=== PATIENT | male | born 1955 | race Caucasian/White ===

== ENCOUNTER 2018-05-18 07:09 | Day surgery (SDC) | payer MEDICARE, MEDICAID ==
[~2018-05-18] VITALS: Ht 185.4 cm; Wt 65.8 kg
[~2018-05-18 07:09] MED LIST: ATOR10TA52 PO; CARV12.544 PO; CLON0.1T PO; ENA10T PO; GABA100C PO; HYDR-531 PO; MELO1TAB73 PO; OME20T PO
[2018-05-18] MEDS ORDERED: LIDOCAINE 2%HCL (LOCAL ANESTH.) INJ 20ML MDV ONE (08:18)
[2018-05-18] MEDS ORDERED: IODIXANOL 320MG/ML 100ML BTL IV ONE ×2 (08:18→08:37)
[2018-05-18] MEDS ORDERED: VERAPAMIL 2.5MG/ML INJ 2ML VIAL IV ONE (08:28)
[2018-05-18] MEDS ORDERED: ANGIOMAX 250 MG VIAL IV ONE (08:28)
[2018-05-18] MEDS ORDERED: fentaNYL CITRATE 100 MCG/2 ML VL ONE (08:29)
[2018-05-18] MEDS ORDERED: ATROPINE SULFATE 1 MG/1 ML VIAL ONE (08:29)
[2018-05-18] MEDS ORDERED: SODIUM CHL 0.9% 0 ML ONE (08:29)
[2018-05-18] MEDS ORDERED: MIDAZOLAM HCL 1MG/1ML-2 ML VIAL ONE (08:29)
[2018-05-18] MEDS ORDERED: DOPamine 1600MCG/ML D5W 0 ML IV ONE (08:30)
[2018-05-18] MEDS ORDERED: EPINEPHrine HCL 1 MG/10 ML SYRG ONE (08:30)
[2018-05-18] MEDS ORDERED: HEPARIN SODIUM (PORCINE) 5000 UNITS/ML 1ML VIAL ONE (09:02)
[2018-05-18] MEDS ORDERED: diphenhdrAMINE HCL 50 MG/1 ML VL IV ONE ×2 (10:45→11:00)
== END 2018-05-18 11:51 | disposition home or self-care (01) ==
LOC: CATH 07:09
PROVIDERS: ATTEND Internal Medicine
DX: R94.39 Abnormal result of other cardiovascular function study (principal); I10 Essential (primary) hypertension; Z90.49 Acquired absence of other specified parts of digestive tract; Z79.899 Other long term (current) drug therapy; Z87.891 Personal history of nicotine dependence; Z96.643 Presence of artificial hip joint, bilateral; Z98.890 Other specified postprocedural states
CPT/HCPCS: 93458; A6257; C1769; C1894; J1200; J1644; J2250; J3010; J7030; Q9967; 99152; 99153; J0461

== ENCOUNTER 2018-12-12 12:56 | Inpatient (IN) | payer MEDICARE, OTHER ==
[~2018-12-12] VITALS: Ht 175.3 cm; Wt 66.9 kg
[~2018-12-12 12:56] MED LIST changes: -ENA10T PO; +ENAL10TA PO
[2018-12-12] MEDS ORDERED: SODIUM CHLORIDE 0.9% 500 ML IV ONE (13:03)
[2018-12-12] MEDS ORDERED: ETOMIDATE (2MG/ML) 20ML VIAL IV ONE (14:30)
[2018-12-12] MEDS ORDERED: ONDANSETRON HCL 4 MG/2 ML VIAL IV ONE (16:00)
[2018-12-12] MEDS ORDERED: MORPHINE SULFATE 4 MG/ML SYR/VIAL IV ONE (16:00)
[2018-12-12] MEDS ORDERED: ACETAMINOPHEN 325 MG TAB PO PRN (16:30)
[2018-12-12] MEDS ORDERED: NITROGLYCERIN 0.4 MG SL TAB SL PRN (16:30)
[2018-12-12 16:33] LABS: Basophils # (auto) 0 uL; Basophils % (auto) 0.4 % (0.0-2.0); Eosinophils # (auto) 0.3 uL; Eosinophils % (auto) 2.6 % (0.0-7.0); Hematocrit 42.2 % (41.0-53.0); Hemoglobin 14.1 g/dL (13.5-17.5); Lymphocytes # (auto) 1.2 uL; Lymphocytes % (auto) 11.4 % (10.0-50.0); Mean Corpuscular Hemoglobin 29.8 pg (28.0-32.0); Mean Corpuscular Hgb Conc. 33.4 g/dL (32.0-36.0); Mean Corpuscular Volume 89.4 fL (80.0-100.0); Monocytes # (auto) 0.5 uL; Monocytes % (auto) 5.1 % (0.0-12.0); Neutrophils # (auto) 8.5 uL; Neutrophils % (auto) 80.5 % (37.0-80.0); Platelet Count (auto) 192 10^3/uL (140-450); Red Blood Cells 4.72 10^6/uL (4.5-5.90); Red Cell Distribution Width 13.3 % (11.8-14.3); White Blood Cell 10.5 10^3/uL (4.4-10.8)
[2018-12-12 16:45] LABS: Albumin 3.7 g/dL (3.4-5.0); Calcium 8.3 mg/dL (8.5-10.1); Potassium 4.6 mmol/L (3.5-5.1)
[2018-12-12 16:49] LABS: BUN/Creatinine Ratio 23.1; Bilirubin, Total 0.7 mg/dL (0.2-1.0); Total Protein 7.3 g/dL (6.4-8.2)
[2018-12-12] MEDS: MELOXICAM 7.5MG PO SCH (17:00)
[2018-12-12] MEDS: MORPHINE SULFATE 4 MG/ML SYR/VIAL IV PRN ×2 (17:14→21:48)
[2018-12-12 17:26] LABS: INR 0.96 (0.9-1.15); Partial Thromboplastin Time 24.1 sec (23.64-32.05)
[2018-12-12] MEDS: HYDROcodone-ACET 5/325MG TAB PO PRN (18:24)
--- NOTE | 2018-12-12 18:47 | NUR ---
MS admit from ER: TABITHA EARLY admitted to tele/MS after SBAR received from SWAPNIL Dyer. Patient oriented to EULOGIO MITCHELL RN primary RN, unit, room, bed, and unit policies regarding patient care and visiting hours. Patient encouraged to call if they need something. All questions and concerns addressed, patient verbalized understanding.
--- NOTE | 2018-12-12 18:54 | NUR ---
Patient A&Ox4. Patient transferred to bed will little distress.
[2018-12-12 19:00] VITALS: BP 138/103
--- NOTE | 2018-12-12 19:10 | NUR ---
Closing shift notes: Care endorsed to NOC SWAPNIL Foster. Due patients arrival to the floor late, admission was not complete. NOC nurse aware.
--- NOTE | 2018-12-12 19:15 | NUR ---
Opening Shift Note Assumed care of patient, awake and alert. Family on bedside No S/S of distress/SOB or pain. Instructed on POC and to call for assist PRN, will continue to monitor for changes Q1hr and PRN.
[2018-12-12] MEDS ORDERED: META-116 PO (20:42)
[2018-12-12] MEDS ORDERED: OXYB5SYP4 PO (20:42)
[2018-12-12] MEDS ORDERED: CITA-73 PO (20:42)
[2018-12-12] MEDS ORDERED: FENT75DI2 TD (20:42)
[2018-12-12] MEDS: ONDANSETRON HCL 4 MG/2 ML VIAL IV PRN (21:28)
[2018-12-12] MEDS: GABAPENTIN 100 MG CAP PO SCH (21:48)
[2018-12-12] MEDS: ATORVASTATIN 20 MG TAB PO SCH (21:49)
[2018-12-12] MEDS: cloNIDine HCL 0.1 MG TAB PO SCH (21:49)
[2018-12-12] MEDS: CARVEDILOL 12.5 MG TAB PO SCH (21:49)
[2018-12-12] MEDS: ENALAPRIL MALEATE 10 MG TAB PO SCH (21:50)
[2018-12-12 22:00] VITALS: BP 147/98
[2018-12-13] MEDS: MORPHINE SULFATE 4 MG/ML SYR/VIAL IV PRN ×2 (02:21→06:07)
[2018-12-13] MEDS: ONDANSETRON HCL 4 MG/2 ML VIAL IV PRN ×2 (02:21→06:06)
[2018-12-13 04:40] LABS: Urine WBC None Seen /hpf (0 - 3)
[2018-12-13 04:46] LABS: Urine Bacteria NONE SEEN /hpf (None Seen); Urine Blood Negative /uL (Negative); Urine Hyaline Cast FEW /lpf (0 - 2); Urine Specific Gravity 1.015 (1.001-1.035)
[2018-12-13 05:00] VITALS: BP 145/102
[2018-12-13] MEDS: GABAPENTIN 100 MG CAP PO SCH ×3 (06:06→22:28)
[2018-12-13 08:00] VITALS: BP 147/102
[2018-12-13 08:29] VITALS: BP 147/102
[2018-12-13] MEDS: MELOXICAM 7.5MG PO SCH (08:30)
[2018-12-13] MEDS: CARVEDILOL 12.5 MG TAB PO SCH ×2 (08:30→22:00)
[2018-12-13] MEDS: OMEPRAZOLE 20MG/10ML ORAL SUSP PO SCH (08:30)
[2018-12-13] MEDS: HYDROcodone-ACET 5/325MG TAB PO PRN ×3 (08:36→18:52)
--- NOTE | 2018-12-13 08:45 | NUR ---
PT OFF UNIT TO OR FOR SX VIA BED. NO S/S OF ACUTE DISTRESS NOTED AT DEPARTURE. Signed: 12/13/18 at 1346 by Martin Napoles RN RN
[2018-12-13] MEDS ORDERED: ceFAZolin 1GM/50ML 50 ML IV ONE (08:56)
[2018-12-13] MEDS ORDERED: SUCCINYLCHOLINE CHLORIDE 20 MG/ML 10ML VIAL IV ONE (09:27)
[2018-12-13] MEDS ORDERED: LIDOCAINE 1% (LOCAL ANESTH.) PF 5ml SDV ONE (09:27)
[2018-12-13] MEDS ORDERED: MIDAZOLAM HCL 1MG/1ML-2 ML VIAL ONE (09:34)
[2018-12-13] MEDS ORDERED: ETOMIDATE (2MG/ML) 20ML VIAL IV ONE (09:37)
[2018-12-13] MEDS ORDERED: fentaNYL CITRATE 100 MCG/2 ML VL ONE (09:42)
[2018-12-13] MEDS ORDERED: SODIUM CHLORIDE LOCK 10 ML ONE (09:50)
[2018-12-13] MEDS ORDERED: ePHEDrine SULFATE 50 MG/ML AMP ONE (09:50)
[2018-12-13] MEDS ORDERED: NEOSTIGMINE 1 MG/ML INJ (10mg/10ML VIAL) ONE (09:52)
[2018-12-13] MEDS ORDERED: GLYCOPYRROLATE 0.2 MG/ML 1ML VIAL ONE (09:52)
[2018-12-13] MEDS ORDERED: ENOXAPARIN SOD 40 MG/0.4 ML SYRINGE SC SCH (10:00)
[2018-12-13] MEDS ORDERED: hydrALAZINE HCL 20 MG/ML VL IV PRN (10:15)
[2018-12-13] MEDS ORDERED: ONDANSETRON HCL 4 MG/2 ML VIAL IV PRN (10:15)
[2018-12-13] MEDS ORDERED: NALOXONE HCL 0.4 MG/ML VIAL IV PRN (10:15)
[2018-12-13] MEDS ORDERED: HYDROmorphone HCL 2 MG/ML VL IV PRN ×2 (10:15)
--- NOTE | 2018-12-13 11:40 | NUR ---
PT BACK TO ROOM, S/P CLOSE REDUCTION OF LEFT HIP. ABDUCTOR PILLOW APPLIED. DENIED OF PAIN NOR ANY DISCOMFORT AT THIS TIME. FAMILY AT BEDSIDE. VS: 97.5, 77, 17, 119/94, 99% ON RA. WILL CONTINUE CARE.
[2018-12-13] MEDS: LACTATED RINGER'S 1,000 ML IV SCH ×2 (12:37→19:51)
[2018-12-13 13:00] VITALS: BP 119/94
[2018-12-13 16:51] VITALS: BP 106/78
--- NOTE | 2018-12-13 19:30 | NUR ---
Opening Shift Note Assumed care of patient, awake and alert. No S/S of distress/SOB. reports pain on left hip 4/10 aching non radiating at a tolerable level. Patient has abductor pillow in place. Instructed on POC and to call for assist PRN, will continue to monitor for changes Q1hr and PRN.
[2018-12-13] MEDS: cloNIDine HCL 0.1 MG TAB PO SCH (22:00)
[2018-12-13] MEDS: ENALAPRIL MALEATE 10 MG TAB PO SCH (22:00)
[2018-12-13] MEDS: ATORVASTATIN 20 MG TAB PO SCH (22:28)
[2018-12-13 23:22] VITALS: BP 102/66
[2018-12-14] MEDS: HYDROcodone-ACET 5/325MG TAB PO PRN ×3 (03:00→14:43)
--- NOTE | 2018-12-14 03:20 | NUR ---
IV insertion IV access obtained, via clean sterile technique by inserting 20gauge catheter at RFA after 1attempt. IV secured properly. No trauma to site. Patient tolerated well. Addendum: 12/14/18 at 0327 by ALY RAMIREZ RN RN Disregard note of IV placement of RFA. IV started on left Forearm NOT Right forearm
--- NOTE | 2018-12-14 03:21 | NUR ---
Wildlife Officer called to inform me patient right arm was swollen due to co band being on to tight from blood draw. Elevated arm onto a blanket. Applied warm compress to area. IV discounted from his right arm.
--- NOTE | 2018-12-14 03:21 | NUR ---
IV removal IV DC'd with clean sterile technique, catheter fully intact. Pressure dressing applied to site. Patient tolerated well.
--- NOTE | 2018-12-14 05:37 | NUR ---
Reassessed patient right arm no edema present. educated patient to continue to keep arm elevated. Patient denies any pain at the site.
[2018-12-14] MEDS: LACTATED RINGER'S 1,000 ML IV SCH (05:38)
[2018-12-14] MEDS: GABAPENTIN 100 MG CAP PO SCH ×3 (05:38→21:48)
--- NOTE | 2018-12-14 07:00 | NUR ---
Opening Shift Note Assumed care of patient, awake and alert. No S/S of distress/SOB or pain. Instructed on POC and to call for assist PRN, and patient verbalized understanding. Will continue to monitor for changes Q1hr and PRN.
--- NOTE | 2018-12-14 07:20 | NUR ---
Report given to stephen ortiz. Informed rn of patient right arm, no swelling at the moment. Patient is laying in bed awake. showing no signs of distress or pain or SOB.
[2018-12-14 09:00] VITALS: BP 139/93
[2018-12-14] MEDS: MELOXICAM 7.5MG PO SCH (10:00)
[2018-12-14] MEDS: OMEPRAZOLE 20MG/10ML ORAL SUSP PO SCH (10:00)
[2018-12-14] MEDS: CITALOPRAM HYDROBR 20 MG TAB PO SCH (10:32)
[2018-12-14] MEDS: CARVEDILOL 12.5 MG TAB PO SCH ×2 (10:33→22:00)
--- NOTE | 2018-12-14 11:00 | NUR ---
Dr. Villar, Hospitalist, at bedside; new orders received.
--- NOTE | 2018-12-14 11:30 | NUR ---
Granado catheter dc'd Order to discontinue granado catheter. Granado dc'd with clean technique following deflation of balloon. Patient tolerated well with no complaints of pain. Continue care.
--- NOTE | 2018-12-14 11:30 | NUR ---
Gave information to PT to order Abduction Brace for patient, as ordered by Dr. Frankel, Orthopedic Surgeon.
[2018-12-14 13:00] VITALS: BP 104/81
[2018-12-14] MEDS: DOCUSATE SOD 100 MG CAP PO PRN (14:43)
[2018-12-14 17:00] VITALS: BP 115/60
[2018-12-14] MEDS ORDERED: fentaNYL 75MCG/HR 75 MCG/HR PAT TD SCH (17:00)
--- NOTE | 2018-12-14 19:00 | NUR ---
Opening Shift Note Assumed care of patient, awake and alert. No S/S of distress/SOB or pain. Instructed on POC and to call for assist PRN, will continue to monitor for changes Q1hr and PRN. Bed in low position and call ligth within reach.
[2018-12-14] MEDS: ATORVASTATIN 20 MG TAB PO SCH (21:48)
[2018-12-14 22:00] VITALS: BP 102/66
[2018-12-14] MEDS: ENALAPRIL MALEATE 10 MG TAB PO SCH (22:00)
[2018-12-14] MEDS: cloNIDine HCL 0.1 MG TAB PO SCH (22:00)
[2018-12-15 05:00] VITALS: BP 127/88
[2018-12-15] MEDS: GABAPENTIN 100 MG CAP PO SCH ×3 (05:39→21:35)
--- NOTE | 2018-12-15 06:52 | NUR ---
Rounds Patient is sleeping. Bilateral chest rise and fall RR 20. Patient has pillow abductor in place. Bed in low position and call light within reach. Patient shows no signs of distress/sob or pain.
--- NOTE | 2018-12-15 07:25 | NUR ---
Endorsed care to van Rn. Informed rn that patient wants to speak with MD villa about his procedure.
--- NOTE | 2018-12-15 07:25 | NUR ---
Opening Shift Note Assumed care of patient, awake and alert. No S/S of distress/SOB. Pt denies having any pain at this time. Bed in lowest and locked position with side rails up x2 and call light within reach. Instructed on POC and to call for assist PRN, will continue to monitor for changes Q1hr and PRN.
[2018-12-15 09:00] VITALS: BP 122/80
[2018-12-15] MEDS: DOCUSATE SOD 100 MG CAP PO PRN (09:26)
[2018-12-15] MEDS: CITALOPRAM HYDROBR 20 MG TAB PO SCH ×3 (09:27→21:37)
[2018-12-15] MEDS: CARVEDILOL 12.5 MG TAB PO SCH ×2 (09:27→21:36)
[2018-12-15] MEDS: HYDROcodone-ACET 5/325MG TAB PO PRN ×3 (09:40→21:35)
[2018-12-15] MEDS: MELOXICAM 7.5MG PO SCH (10:00)
[2018-12-15] MEDS: OMEPRAZOLE 20MG/10ML ORAL SUSP PO SCH (10:00)
--- NOTE | 2018-12-15 11:55 | NUR ---
PAGED PT REGARDING PATIENT HIP BRACE.
--- NOTE | 2018-12-15 12:25 | NUR ---
SPOKE TO BEST WITH PT. THE HIP BRACE IS IN PROCESS.
[2018-12-15 13:00] VITALS: BP 145/99
--- NOTE | 2018-12-15 16:30 | NUR ---
Discharge planning per consult patient has orders for a walker and home health. Referral sent to [facility] for the walker and it will be delivered to bedside [facility] or tomorrow per Aurea at [facility]. Referral for home health was sent to [facility] per patient's choice. Placed a follow up call, spoke with Wen and was advised that they will accept this patient upon discharge and start of care will be within 24-48 hours. Nurse Recinos was advised of update to consult. Addendum: 12/15/18 at 1636 by ISAAK MATT Amended: Links added.
--- NOTE | 2018-12-15 16:34 | NUR ---
assessment Patient is a 63 year old male who is alert and oriented. Patients cognitive abilities are intact. Prior to admission patient lived home with family and functioned independently. Patient informed me he is able to care for his own ADLs. Per patient he will return home to his prior living arrangements post discharge and family will transport him home. Patient has been admitted for dislocation of hip. Patients PCP is Dr Sarabia. Patient has a cane and wheelchair for home use. Patient will need hip brace, fww, and home health for PT. Patient feels safe returning home on discharge. I informed patient he has a right to speak to a criminal justice social worker regarding all care. I informed patient he has a right to participate in any and all discharge planning. Patient does not have a POA and advanced directive. I have offered patient information on POA and advanced directives. I informed the patient the advantages and benefits of having an Advanced Directive. Patient verbalized understanding and agreed to discharge plan. Addendum: 12/15/18 at 1638 by Bessy ORTIZ Amended: Links added.
--- NOTE | 2018-12-15 16:35 | NUR ---
RECEIVED CALL FROM ISAAK WITH SOCIAL SERVICE. ACCORDING TO ISAAK, THE WALKER IS TO BE DELIVERED TONIGHT OR TOMORROW BY [facility] AND THE PATIENTS HOME HEALTH SERVICE IS TO BE PROVIDED BY [facility] AND WILL BEGIN WITHIN 24-48 HRS AFTER DISCHARGE.
[2018-12-15 17:00] VITALS: BP 125/79
[2018-12-15 20:00] VITALS: BP 145/99
[2018-12-15] MEDS: ATORVASTATIN 20 MG TAB PO SCH (21:36)
[2018-12-15] MEDS: cloNIDine HCL 0.1 MG TAB PO SCH ×2 (21:37→22:37)
[2018-12-15] MEDS: ENALAPRIL MALEATE 10 MG TAB PO SCH (21:40)
[2018-12-15 22:00] VITALS: BP 110/74
[2018-12-16] MEDS: cloNIDine HCL 0.1 MG TAB PO SCH (03:25)
[2018-12-16 05:00] VITALS: BP 116/78
[2018-12-16] MEDS: GABAPENTIN 100 MG CAP PO SCH (06:00)
--- NOTE | 2018-12-16 06:49 | NUR ---
PT RESTED WELL THROUGHOUT THE NIGHT;ABLE TO TURN ON HIS OWN;STATES DESIRE TO GO HOME TODAY;DENIES PAIN;CALL LIGHT IN REACH.
--- NOTE | 2018-12-16 07:30 | NUR ---
Opening Shift Note Assumed care of patient, awake and alert. No S/S of distress/SOB or pain. Instructed on POC and to call for assist PRN, will continue to monitor for changes Q1hr and PRN.
[2018-12-16 08:00] VITALS: BP 120/81
[2018-12-16 09:00] VITALS: BP 120/81
[2018-12-16] MEDS ORDERED: ETOMIDATE (2MG/ML) 20ML VIAL IV ONE (09:03)
[2018-12-16] MEDS ORDERED: ROCURONIUM 10MG/ML 10ML VIAL IV ONE (09:04)
[2018-12-16] MEDS ORDERED: MIDAZOLAM HCL 1MG/1ML-2 ML VIAL ONE ×2 (09:06→09:46)
[2018-12-16] MEDS ORDERED: fentaNYL CITRATE 100 MCG/2 ML VL IV ONE (09:27)
[2018-12-16] MEDS: MELOXICAM 7.5MG PO SCH (10:00)
[2018-12-16] MEDS: CITALOPRAM HYDROBR 20 MG TAB PO SCH (10:40)
[2018-12-16] MEDS: CARVEDILOL 12.5 MG TAB PO SCH (10:41)
[2018-12-16] MEDS: OMEPRAZOLE 20MG/10ML ORAL SUSP PO SCH (10:41)
[2018-12-16] MEDS: HYDROcodone-ACET 5/325MG TAB PO PRN (10:42)
--- NOTE | 2018-12-16 11:00 | NUR ---
PHAM AT BEDSIDE DISCUSSING THE PATIENT'S HIP BRACE. WE ARE STILL WAITING FOR THE HIP BRACE AND PHAM AFFIRMED WITH THE PATIENT THAT HE IS WORKING ON GETTING IT FOR HIM. THE PATIENT EXPRESSES THAT HE DOESN'T WANT TO LEAVE WITHOUT THE BRACE.
--- NOTE | 2018-12-16 11:15 | NUR ---
THE PATIENT EXPRESSED THAT HE JUST WANTS TO GO HOME AND HE WILL WAIT FOR THE BRACE TO BE DELIVERED TO HIS HOUSE.
--- NOTE | 2018-12-16 14:30 | NUR ---
Discharge instructions given as ordered. Encourage to follow up with Dr. Grover as instructed. Bessy Griggs confirmed with the patient that his walker is being delivered to his [place]. Tomas confirmed with the patient that the brace is on its way to being delivered. Contact information given to the patient's grand-daughter. All questions and concerns addressed. Patient verbalized understanding. IV removed with catheter intact, pressure dressing applied. Patient taken to vehicle via wheelchair with all personal belongings, accompanied by staff and family member. No distress noted at time of departure.
--- NOTE | 2018-12-16 18:14 | NUR ---
Patient will have walker delivered to his home per Aurea at [facility].
== END 2018-12-16 14:30 | disposition home health service (06) | DRG 566 ==
LOC: ER 12:56 → EDBD 12:56 → OVERFLOW 12:57 → EAST 18:50
PROVIDERS: ADMIT Hospitalist; ATTEND Internal Medicine
PROC: BQ11ZZZ Fluoroscopy of Left Hip (ICD-10-PCS; 2018-12-13)
PROC: 0SWBXJZ Revision of Synthetic Substitute in Left Hip Joint, External Approach (ICD-10-PCS; principal; 2018-12-13 09:32)
DX: M24.452 Recurrent dislocation, left hip (principal); I10 Essential (primary) hypertension; Z96.643 Presence of artificial hip joint, bilateral; G89.29 Other chronic pain; X58.XXXA Exposure to other specified factors, initial encounter; F32.9 Major depressive disorder, single episode, unspecified; Z79.899 Other long term (current) drug therapy; Z82.49 Family history of ischemic heart disease and other diseases of the circulatory system; Z87.891 Personal history of nicotine dependence; Y93.89 Activity, other specified; Z90.49 Acquired absence of other specified parts of digestive tract; Y99.8 Other external cause status; Y92.008 Other place in unspecified non-institutional (private) residence as the place of occurrence of the external cause
CPT/HCPCS: 27265; 36415; 51702; 71045; 73501; 73502; 76000; 80053; 81001; 85025; 85610; 85730; 94761; 96361; 96374; 96375; 97110; 97116; 97163; 97530; G0378; J0330; J0690; J2250; J2405

== ENCOUNTER 2023-11-22 07:15 | Inpatient (IN) | payer MEDICARE, OTHER ==
[~2023-11-22] VITALS: Ht 182.9 cm; Wt 67.9 kg
[~2023-11-22 07:15] MED LIST changes: +CITA-73 PO; -ENAL10TA PO; +ENAL1TAB46 PO; +FENT75DI2 TD; -MELO1TAB73 PO; +MELO7.5T7 PO; +META5TAB PO; +OXYB5SYP4 PO
--- NOTE | 2023-11-22 08:21 | ED.PDOC ---
Musculoskeletal HPI Comments 68 year old male PAULA presents to the ED with chief complaint of hip pain. Patient reports that this morning when getting back into bed, he had felt his left hip pop out of place with associated pain. Patient relays that he has history of hip dislocations and needed to be put under anesthesia to have it reduced due to the immense pain. EMS states patient was provided 100mcg of Fentanyl IV along with patient having a 70mcg Fentanyl patch in place for chronic back pain. Patient denies any numbness, weakness, injury, or fall. Chief Complaint: Lower Extremity Time Seen by MD: 08:17 Primary Care Provider: TIBURCIO Reviewed Notes: Nurses Notes, Senior Data Integration Developer Notes, Medications, Allergies Allergies: Coded Allergies: NO KNOWN ALLERGIES (Unverified , 12/12/18) Home Meds Reported Medications Fentanyl (Fentanyl) 75 Mcg/Hr Dis, 75 MCG TD Q72HR, DIS 12/12/18 Metaxalone (Metaxalone) 800 Mg Tab, 800 MG PO TID, TAB 12/12/18 Citalopram Hydrobromide (Citalopram Hydrobromide) 40 Mg Tab, 40 MG PO DAILY for 30 Days, MG 12/12/18 Oxybutynin Chloride (Oxybutynin Chloride) 5 Mg/5 Ml Syp, 5 MG PO DAILY, SYP 12/12/18 Clonidine Hydrochloride (Clonidine Hcl) 0.1 Mg Tab, 0.1 MG PO HSPRN for 30 Days, MG 05/16/18 Hydrocodone-Acetaminophen ([place] 10-325 mg) 1 Tab Tab, 1 TAB PO TIDP, TAB 05/16/18 Gabapentin (Neurontin) 100 Mg Cap, 1 CAP PO TID, #90 CAP 2 Refills 05/16/18 Omeprazole (Omeprazole) 20 Mg Cap, 20 MG PO DAILY, CAP 05/16/18 Atorvastatin Calcium (ATORVASTATIN CALCIUM) 10 Mg Tab, 1 TAB PO HS, #30 TAB 5 Refills 05/16/18 Meloxicam (Meloxicam) 7.5 Mg Tab, 1 TAB PO DAILY, #30 TAB 2 Refills 05/16/18 Enalapril Maleate (VASOTEC TABLET) 10 Mg Tb, 1 TAB PO HS, #30 TAB 5 Refills 05/16/18 Carvedilol (Carvedilol) 12.5 Mg Tab, 12.5 MG PO Q12HR for 30 Days, MG 05/16/18 Information Source: Patient, Emergency Med Personnel Mode of Arrival: EMS Location: Left Extremity Location: Hip Timing: Hours Prehospital treatment: None Severity: Moderate Able to Move Extremity: No Bear Weight: No Pain: Moderate Mechanism: Spontaneous Circumstances: Arthritis Onset of Symptoms: Spontaneous Symptoms: Pain DVT Risk Factors: NONE History of: Arthritis, Hip Dislocation, Hip Operation Associated signs and symptoms: Hip pain Past Medical History PAST MEDICAL HISTORY: Arthritis, Depression, GERD, High Lipids, HTN Past Medical History (Other): Chronic back pain Surgical History: Appendectomy, Hernia Repair, Tonsillectomy Surgical History (Other): Bilateral hip surgeries, Rt femur surgery, C-Spine fusion Family History Family History: Reviewed,noncontributory to illness, Family hx of heart mallika, Family hx of HTN Social History Smoker: Quit Greater Than 1 Year Alcohol: Occasionally Drugs: Marijuana Lives In: Home Constitutional: denies: chills, diaphoresis, fatigue, fever, malaise, sweats, weakness, others EENTM: denies: blurred vision, double vision, ear bleeding, ear discharge, ear drainage, ear pain, ear ringing, eye pain, eye redness, hearing loss, mouth pain, mouth swelling, nasal discharge, nose bleeding, nose congestion, nose pain, photophobia, tearing, throat pain, throat swelling, voice changes, others Respiratory: denies: cough, hemoptysis, orthopnea, SOB at rest, shortness of breath, SOB with excertion, stridor, wheezing, others Cardiovascular: denies: chest pain, dizzy spells, diaphoresis, Dyspnea on exertion, edema, irregular heart beat, left arm pain, lightheadedness, palpi tations, PND, syncope, others Gastrointestinal: denies: abdomen distended, abdominal pain, blood streaked bowels, constipated, diarrhea, dysphagia, difficulty swallowing, hematemesis, melena, nausea, poor appetite, poor fluid intake, rectal bleeding, rectal pain, vomiting, others Genitourinary: denies: burning, dysuria, flank pain, frequency, hematuria, incontinence, penile discharge, penile sore, pain, testicle pain, testicle swelling, urgency, others Neurological: denies: dizziness, fainting, headache, left sided numbness, left sided weakness, numbness, paresthesia, pre-existing deficit, right sided numbness, right sided weakness, seizure, speech problems, tingling, tremors, weakness, others Musculoskeletal: reports: others (left hip pain and dislocation); denies: back pain, gout, joint pain, joint swelling, muscle pain, muscle stiffness, neck pain Integumetry: denies: bruises, change in color, change in hair/nails, dryness, laceration, lesions, lumps, rash, wounds, others Allergic/Immunocompromised: denies: Difficulty Healing, Frequent Infections, Hives, Itching, others Hematologic/Lymphatic: denies: anemia, blood clots, easy bleeding, easy bruising, swollen glands, others Endocrine: denies: excessive hunger, excessive sweating, excessive thirst, excessive urination, flushing, intolerance to cold, intolerance to heat, unexplained weight gain, unexplained weight loss, others Psychiatric: denies: anxiety, bipolar disorder, depression, hopeless, panic disorder, schizophrenia, sleepless, suicidal, others All Other Systems: Reviewed and Negative Physical Exam General Appearance: Moderate Distress, Normal HEENT: Normal ENT Inspection, PERRL/EOMI Neck: Full Range of Motion, Non-Tender, Normal, Normal Inspection Respiratory: Chest Non-Tender, Lungs Clear, No Accessory Muscle Use, No Respiratory Distress, Normal Breath Sounds Cardiovascular: No Edema, No JVD, No Murmur, No Gallop, Normal Peripheral Pulses, Regular Rate/Rhythm Breast Exam: Deferred Gastrointestinal: No Organomegaly, Non Tender, No Pulsatile Mass, Normal Bowel Sounds, Soft Genitalia: Deferred Pelvic: Deferred Rectal: Deferred Extremities: Decreased range of motion, No calf tenderness, Normal capillary refill, No pedal edema, Tender, Other (Left leg shortened severe pain to left hip) Musculoskeletal : Location: Left Extremity Location: Hip Apperance: Deformity, Limited ROM, Tenderness: Moderate Neurologic: Alert, 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 Was a procedure done?: Yes Sedation Sedation?: Yes Informed consent obtained: Yes Sedation start time: 10:15 Sedation end time: 11:00 Sedation total time: 45 minutes Reduction Indication: Dislocation Sedation: Consents obtained, Sedation as ordered, Attempted Reduction Informed consent obtained: Yes Risks/benefits/alt described: Yes Notes Left femoral dislocation attempted with patient medicated with: Propofol 20mg, Versed 5mg, and Ativan 1mg. Multiple attempts were made to manipulate the left leg for about 20 minutes with no success in reducing the dislocation. Contacted orthopedist who advised patient to be admitted to be taken to the operating room. EKG EKG : Pulse Rate (adult): 86 [place]: Normal Cardiac Rhythm: NSR, PVC's Hypertrophy: LAE Comments QT prolongation Differential Diagnosis EXT Differential Diagnosis: Fracture, Sprain, Dislocation, DJD, Contusion, Neurovascular injury X-Ray, Labs, Meds, VS Vital Signs Date Time Temp Pulse Resp B/P (MAP) Pulse Ox O2 Delivery O2 Flow Rate FiO2 11/22/23 11:06 78 18 97 2.0 28 89 18 95 75 99 11/22/23 10:08 87 16 169/67 (101) 97 11/22/23 08:35 63 17 95 Room Air* 0 21 11/22/23 08:03 77 24 156/88 (110) 98 11/22/23 08:00 78 11/22/23 07:15 98.8 70 20 188/76 (113) 97 Lab Test 11/22/23 08:55 Range/Units White Blood Count 7.5 4.4-10.8 10^3/uL Red Blood Count 4.51 4.5-5.90 10^6/uL Hemoglobin 12.8 L 13.5-17.5 g/dL Hematocrit 38.3 L 41.0-53.0 % Mean Corpuscular Volume 84.9 80.0-100.0 fL Mean Corpuscular Hemoglobin 28.3 28.0-32.0 pg Mean Corpuscular Hemoglobin Concent 33.3 32.0-36.0 g/dL Red Cell Distribution Width 15.2 H 11.8-14.3 % Platelet Count 161 140-450 10^3/uL Mean Platelet Volume 7.7 6.9-10.8 fL Neutrophils (%) (Auto) 77.0 37.0-80.0 % Lymphocytes (%) (Auto) 13.4 10.0-50.0 % Monocytes (%) (Auto) 8.0 0.0-12.0 % Eosinophils (%) (Auto) 1.3 0.0-7.0 % Basophils (%) (Auto) 0.3 0.0-2.0 % Neutrophils # (Auto) 5.7 1.6-8.6 10 ^3/uL Lymphocytes # (Auto) 1.0 0.4-5.4 10 ^3/uL Monocytes # (Auto) 0.6 0-1.3 10 ^3/uL Eosinophils # (Auto) 0.1 0-0.8 10 ^3/uL Basophils # (Auto) 0 0-0.2 10 ^3/uL Nucleated Red Blood Cells 0.0 % Sodium Level 137 136-145 mmol/L Potassium Level 3.9 3.5-5.1 mmol/L Chloride Level 105 98-107 mmol/L Carbon Dioxide Level 25 20-31 mmol/L Anion Gap 7 5-15 Blood Urea Nitrogen 18 9-23 mg/dL Creatinine 0.89 0.700-1.30 mg/dL Glomerular Filtration Rate Calc 94 >90 mL/min BUN/Creatinine Ratio 20.2 H 10.0-20.0 Serum Glucose 96 74-106 mg/dL Calcium Level 9.7 8.7-10.4 mg/dL Magnesium Level 2.0 1.6-2.6 mg/dL Total Bilirubin 1.0 0.2-1.0 mg/dL Aspartate Amino Transferase (AST) 131 H 13-40 U/L Alanine Aminotransferase (ALT) 108 H 7-40 U/L Alkaline Phosphatase 192 H 46-116 U/L Total Protein 6.7 5.7-8.2 g/dL Albumin 4.0 3.2-4.8 g/dL Current Medications Medications (Trade) Dose Ordered Sig/Francisco Javier Route Start Time Stop Time Status Last Admin Sodium Chloride 500 ml @ 500 mls/hr Q1H ONCE IV 11/22/23 08:45 11/22/23 09:44 DC 11/22/23 08:45 Sodium Chloride 1,000 ml @ 150 mls/hr Q6H40M ONCE IV 11/22/23 08:45 11/22/23 15:24 11/22/23 08:45 Midazolam HCl (Versed Injection) 5 mg ONCE ONCE IV 11/22/23 10:15 11/22/23 10:16 DC 11/22/23 10:21 Propofol (Diprivan) 20 mg ONCE ONCE IV 11/22/23 10:15 11/22/23 10:16 DC 11/22/23 10:21 Lorazepam (Ativan Inj) 1 mg ONCE ONCE IV 11/22/23 10:45 11/22/23 10:46 DC 11/22/23 11:01 XR LT Hip: Limited examination secondary to patient positioning. Right hip arthroplasty. Dislocated femoral component of left hip arthroplasty. X-Ray, Labs, Meds, VS Comment Course in the emergency department eventful patient came in with a dislocated left hip spontaneous no injuries and a blood pressure of 188/76 patient also has chronic pain is on fentanyl patch he has hypertension high cholesterol Benadryl no fractures with a prosthesis as C-spine fusion at thoracic laminectomy and to repair to the left knee The left hip x-ray shows superior and anterior dislocation of the left prosthesis CBC is normal CMP negative except for elevated liver enzymes Magnesium 2.0 Patient received multiple medication like propofol Versed and Ativan and he has his fentanyl patch and he would not go to sleep very tense has been consulted Patient will be admitted Images Reviewed?: Images reviewed and evaluated by me Time of 1ST Reevaluation: 09:17 Reevaluation 1ST: Improved Time of 2ND Reevaluation: 11:10 Reevaluation 2ND: Unchanged Patient Education/Counseling: Diagnosis, Treatment, Prognosis Family Education/Counseling: Diagnosis, Treatment, Prognosis, Other ( at bedside) Departure 1 Departure Time of Disposition: 11:13 Impression: Primary Impression: Dislocation of internal left hip prosthesis, initial encounter Additional Impressions: Chronic pain syndrome Hypertension Qualified Codes: I10 - Essential (primary) hypertension Disposition: ADMITTED INPATIENT Admit to: Med Surg Condition: Serious Critical Care Note Critical Care Time?: No Stability Stability form required: Yes Heart Score Heart Score: Heart Score Response (Comments) Value History N/A 0 EKG Repolarization Disturb 1 Age >65 2 Risk Factors 1 or 2 risk factors 1 Troponin N/A 0 Total 4 I personally scribed for CORDELL RAMOS MD ([email or web address]) on 11/22/23 at 08:21. Electronically submitted by Randell Mason ([email or web address]). I personally scribed for CORDELL RAMOS MD ([email or web address]) on 11/22/23 at 09:56. Electronically submitted by Randell Mason ([email or web address]). I personally scribed for CORDELL RAMOS MD ([email or web address]) on 11/22/23 at 10:25. Electronically submitted by Randell Mason ([email or web address]). I personally scribed for CORDELL RAMOS MD ([email or web address]) on 11/22/23 at 10:46. Electronically submitted by Randell Mason ([email or web address]). I personally scribed for CORDELL RAMOS MD ([email or web address]) on 11/22/23 at 11:10. Electronically submitted by Randell Mason ([email or web address]). CORDELL RAMOS MD Nov 22, 2023 08:21
[2023-11-22 08:35] VITALS: PULSE 63; RESP 17; O2SAT 95
[2023-11-22] MEDS: SODIUM CHLORIDE 0.9% 500 ML IV ONE (08:45)
[2023-11-22] MEDS: SODIUM CHLORIDE 0.9% 1,000 ML IV ONE (08:45)
[2023-11-22 09:27] LABS: Basophils # (auto) 0 10 ^3/uL (0-0.2); Basophils % (auto) 0.3 % (0.0-2.0); Eosinophils # (auto) 0.1 10 ^3/uL (0-0.8); Eosinophils % (auto) 1.3 % (0.0-7.0); Hematocrit 38.3 % (41.0-53.0); Hemoglobin 12.8 g/dL (13.5-17.5); Lymphocytes % (auto) 13.4 % (10.0-50.0); Mean Corpuscular Hemoglobin 28.3 pg (28.0-32.0); Mean Corpuscular Hgb Conc. 33.3 g/dL (32.0-36.0); Mean Corpuscular Volume 84.9 fL (80.0-100.0); Monocytes # (auto) 0.6 10 ^3/uL (0-1.3); Neutrophils # (auto) 5.7 10 ^3/uL (1.6-8.6); Platelet Count (auto) 161 10^3/uL (140-450); Red Blood Cells 4.51 10^6/uL (4.5-5.90); Red Cell Distribution Width 15.2 % (11.8-14.3); White Blood Cell 7.5 10^3/uL (4.4-10.8)
--- NOTE | 2023-11-22 09:41 | DVH ---
CLINICAL INDICATION: Dislocation TECHNIQUE: 3 XY L HIP COMPLETE XRAY Comparison: L HIP COMPLETE XRAY on DOS: 12/13/18 FINDINGS/IMPRESSION: Limited examination secondary to patient positioning. Right hip arthroplasty. Dislocated femoral component of left hip arthroplasty.
[2023-11-22 09:43] LABS: Alanine Aminotransferase 108 U/L (7-40); Alkaline Phosphatase 192 U/L (46-116); Anion Gap 7 (5-15); Aspartate Aminotransferase 131 U/L (13-40); BUN/Creatinine Ratio 20.2 (10.0-20.0); Blood Urea Nitrogen 18 mg/dL (9-23); Calcium 9.7 mg/dL (8.7-10.4); Carbon Dioxide 25 mmol/L (20-31); Chloride 105 mmol/L (98-107); Glucose 96 mg/dL (74-106); Potassium 3.9 mmol/L (3.5-5.1); Sodium 137 mmol/L (136-145)
[2023-11-22 09:44] LABS: Total Protein 6.7 g/dL (5.7-8.2)
[2023-11-22] MEDS: MIDAZOLAM HCL 5 MG/ML-1ML VIAL IV ONE (10:21)
[2023-11-22] MEDS: PROPOFOL 10 MG/ML 20 ML IV ONE (10:21)
[2023-11-22] MEDS: LORazepam 2MG/ML-1ML VIAL IV ONE (11:01)
[2023-11-22] MEDS: LORazepam 2MG/ML-1ML VIAL ONE (11:01)
--- NOTE | 2023-11-22 11:29 | ECG ---
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
[2023-11-22] MEDS ORDERED: DOCUSATE SOD 100 MG CAP PO PRN (11:45)
--- NOTE | 2023-11-22 11:53 | DVHHP2 ---
History of Present Illness Reason for Visit: Left hip pain History of Present Illness 68-year-old male past medical history arthritis depression GERDs hyperlipidemia hypertension chronic back pain surgical history appy hernia repair tonsillectomy bilateral hip surgery right femur surgery C-spine fusion chief complaint patient comes in stating that it that he went to the bathroom and when he got in his bed put his left leg down he he reached his right leg over to his left leg and that is when he heard a pop in the hip. Patient now he dislocated his hip because he has done it before. Now he is in severe pain. Patient had Review of Systems Constitutional: No: Fever, Chills, Sweats, Weakness, Malaise, Other Eyes: No: Pain, Vision change, Conjunctivae inflammation, Eyelid inflammation, Other, Redness ENT: No: Ear pain, Ear discharge, Nose pain, Nose discharge, Nose congestion, Mouth pain, Mouth swelling, Throat pain, Throat swelling, Other Respiratory: No: Cough, Dry, Shortness of breath, SOB with excertion, Wheezing, Hemoptysis, Pleuritic Pain, Sputum, Wheezing, Other Cardiovascular: No: Chest Pain, Palpitations, Orthopnea, Paroxysmal Noc. Dyspnea, Edema, Lt Headedness, Other Gastrointestinal: No: Nausea, Vomiting, Abdominal Pain, Diarrhea, Constipation, Melena, Hematochezia, Other Genitourinary: No Dysuria, No Frequency, No Incontinence, No Hematuria, No Retention, No Other Musculoskeletal: other (left hip pain); No: neck pain, shoulder pain, arm pain, back pain, hand pain, leg pain, foot pain Skin: No: Rash, Lesions, Jaundice, Bruising, Other Neurological: No: Weakness, Numbness, Incoordination, Change in speech, Confusion, Seizures, Other Allergies: Coded Allergies: NO KNOWN ALLERGIES (Unverified , 12/12/18) Medications Current Medications Medications Dose Ordered Sig/Francisco Javier Route Start Time Stop Time Status Last Admin Dose Admin Sodium Chloride 1,000 ml @ 120 mls/hr Q8H20M IV 11/22/23 11:45 UNV Ondansetron HCl 4 mg Q4HP PRN IV 11/22/23 11:45 UNV Docusate Sodium 100 mg BIDPRN PRN PO 11/22/23 11:45 UNV Morphine Sulfate 2 mg Q4HPRN PRN IV 11/22/23 11:45 UNV Enoxaparin Sodium 40 mg DAILY SC 11/22/23 11:45 UNV Carvedilol 12.5 mg Q12HR PO 11/22/23 22:00 UNV Clonidine HCl 0.1 mg HSPRN PO 11/22/23 22:00 UNV Enalapril Maleate 10 mg HS PO 11/22/23 22:00 UNV Gabapentin 100 mg TID PO 11/22/23 14:00 UNV Patient Own Medication 1 tab HS PO 11/22/23 22:00 UNV Patient Own Medication 40 mg DAILY PO 11/23/23 10:00 UNV Patient Own Medication 1 tab DAILY PO 11/23/23 10:00 UNV Patient Own Medication 800 mg TID PO 11/22/23 14:00 UNV Patient Own Medication 20 mg DAILY PO 11/23/23 10:00 UNV Patient Own Medication 5 mg DAILY PO 11/23/23 10:00 UNV Exam Vital Signs Vital Signs Date Time Temp Pulse Resp B/P (MAP) Pulse Ox O2 Delivery O2 Flow Rate FiO2 11/22/23 11:35 86 11/22/23 11:06 18 97 2.0 28 18 95 99 11/22/23 10:08 169/67 (101) 11/22/23 08:35 Room Air* 11/22/23 07:15 98.8 General Appearance: Alert, Oriented X3, Cooperative, No acute distress HEENT: Atraumatic, PERRLA, EOMI, Mucous membr. moist/pink Respiratory: Clear to auscultation, Normal air movement Cardiovascular: Regular rate, Normal S1, Normal S2, No murmurs Abdominal: Normal bowel sounds, Soft, No tenderness, No hepatospenomegaly, No masses Extremities: No clubbing, No cyanosis, No edema, Normal pulses, No tenderness/swelling, Other (left hip with deformity ) Skin: No rashes, No breakdown, No significant lesion Neuro: Normal gait, Normal speech, Strength at 5/5 X4 ext, Normal tone, Sensation intact, Other (neuro non focal ) Psych/Mental Status: Mental status NL, Mood NL Labs/Xrays X-ray of the right hip shows arthroplasty with dislocation I reviewed labs, imaging CT scan abdomen pelvis, EKG and all diagnostic studies on this patient from ED records and the medical chart Labs Test 11/22/23 08:55 Range/Units White Blood Count 7.5 4.4-10.8 10^3/uL Red Blood Count 4.51 4.5-5.90 10^6/uL Hemoglobin 12.8 L 13.5-17.5 g/dL Hematocrit 38.3 L 41.0-53.0 % Mean Corpuscular Volume 84.9 80.0-100.0 fL Mean Corpuscular Hemoglobin 28.3 28.0-32.0 pg Mean Corpuscular Hemoglobin Concent 33.3 32.0-36.0 g/dL Red Cell Distribution Width 15.2 H 11.8-14.3 % Platelet Count 161 140-450 10^3/uL Mean Platelet Volume 7.7 6.9-10.8 fL Neutrophils (%) (Auto) 77.0 37.0-80.0 % Lymphocytes (%) (Auto) 13.4 10.0-50.0 % Monocytes (%) (Auto) 8.0 0.0-12.0 % Eosinophils (%) (Auto) 1.3 0.0-7.0 % Basophils (%) (Auto) 0.3 0.0-2.0 % Neutrophils # (Auto) 5.7 1.6-8.6 10 ^3/uL Lymphocytes # (Auto) 1.0 0.4-5.4 10 ^3/uL Monocytes # (Auto) 0.6 0-1.3 10 ^3/uL Eosinophils # (Auto) 0.1 0-0.8 10 ^3/uL Basophils # (Auto) 0 0-0.2 10 ^3/uL Nucleated Red Blood Cells 0.0 % Sodium Level 137 136-145 mmol/L Potassium Level 3.9 3.5-5.1 mmol/L Chloride Level 105 98-107 mmol/L Carbon Dioxide Level 25 20-31 mmol/L Anion Gap 7 5-15 Blood Urea Nitrogen 18 9-23 mg/dL Creatinine 0.89 0.700-1.30 mg/dL Glomerular Filtration Rate Calc 94 >90 mL/min BUN/Creatinine Ratio 20.2 H 10.0-20.0 Serum Glucose 96 74-106 mg/dL Calcium Level 9.7 8.7-10.4 mg/dL Magnesium Level 2.0 1.6-2.6 mg/dL Total Bilirubin 1.0 0.2-1.0 mg/dL Aspartate Amino Transferase (AST) 131 H 13-40 U/L Alanine Aminotransferase (ALT) 108 H 7-40 U/L Alkaline Phosphatase 192 H 46-116 U/L Total Protein 6.7 5.7-8.2 g/dL Albumin 4.0 3.2-4.8 g/dL Assessment/Plan Assessment/Plan acute right hip dislocation with hx found on imaging results was attempted relocation by er team no success ordered ortho fu results ordered morphine as needed for pain ordered type and screen and ekg fu results ordered diet for now ordered lovenox for now acute transaminitis can do outpt workup chronic gerds protonix chronic hld cont home medication uncontrolled benign essential hypertension cont home medication chronic back pain ordered morphine as needed for pain chronic depression cont home medication chronic arthritis ordered morphine prn fen/ppx diet ivf scd lovenox no gi ppx since no hx of gerds or gi bleed plan admit to tele for now Plan discussed with: Patient My Orders Orders - HERMELINDA VORA DNP Procedure Category Date Status Time Allergies FRANCISCA 11/22/23 In Process 11:41 Code Status CODE 11/22/23 Transmitted 11:41 Sodium Chloride 0.9% PHA 11/22/23 Logged 11:45 Ondansetron Hcl PHA 11/22/23 Logged (Zofran) 11:45 Docusate Sodium PHA 11/22/23 Logged Capsule (Colace 11:45 Complete Blood Count LAB 11/23/23 Verified 04:00 Comprehensive LAB 11/23/23 Verified Metabolic Panel 04:00 Cardiac DIET 11/22/23 Transmitted Diet-2gna,Lofat,Lochol Lunch Condition: Stable FRANCISCA 11/22/23 In Process 11:41 BRP FRANCISCA 11/22/23 In Process 11:41 Morphine Sulfate PHA 11/22/23 Logged Injection 11:45 Sequential FRANCISCA 11/22/23 In Process Compression Device Enoxaparin Sodium PHA 11/22/23 Logged (Lovenox) 11:45 Carvedilol Tablet PHA 11/22/23 Logged (Coreg Tablet) 22:00 Clonidine Hcl Tablet PHA 11/22/23 Logged (Catapres Tablet) 22:00 Enalapril Tablet PHA 11/22/23 Logged (Vasotec Tablet) 22:00 Gabapentin Capsule PHA 11/22/23 Logged (Neurontin Capsule) 14:00 (Nf) Atorvastatin PHA 11/22/23 Logged Calcium 22:00 (Nf) Citalopram PHA 11/23/23 Logged Hydrobromide 10:00 (Nf) Meloxicam PHA 11/23/23 Logged 10:00 (Nf) Metaxalone PHA 11/22/23 Logged 14:00 (Nf) Omeprazole PHA 11/23/23 Logged 10:00 (Nf) Oxybutynin PHA 11/23/23 Logged Chloride 10:00 * Orthopedic Consult CONS 11/22/23 Transmitted 11:41 Date of Service: Nov 22, 2023 Billing Provider: HERMELINDA VORA DNP Common Visit Codes: 93161-BHAHOPY INP/OBS CARE (HIGH) HERMELINDA VORA DNP Nov 22, 2023 11:53
--- NOTE | 2023-11-22 12:16 | DVHINCON2 ---
Date of service: Nov 22, 2023 Reason for Consultation Left hip arthroplasty dislocation History of Present Illness Mr. Mcgrath is a 68-year-old male who was brought to the hospital by ambulance due to his left hip dislocating when he was trying to get back into bed yesterday. Patient was very tired during my evaluation and spoke with his who provided me with the patient's history who reports that he has had multiple dislocations throughout the years to have needed to be reduced in the OR due to the immense pain and difficulty with the reduction in the ER. Attempts were made to reduce the patient's hip dislocation in the emergency room but were unsuccessful. Patient was otherwise feeling well denying any other complaints or concerns during my evaluation. Past Medical History Arthritis, Depression, GERD, High Lipids, HTN Past Surgical History Appendectomy, Hernia Repair, Tonsillectomy, Bilateral hip replacements, shoulder replacement, C-Spine fusion Family History: Cardiovascular disease G8 FATHER Family History Family history of heart disease and hypertension Social History Patient admits to occasional alcohol and marijuana use but denies any other illicit drug use and quit smoking approximately one year ago Allergies: Coded Allergies: NO KNOWN ALLERGIES (Unverified , 12/12/18) Home Meds Reported Medications Fentanyl (Fentanyl) 75 Mcg/Hr Dis, 75 MCG TD Q72HR, DIS 12/12/18 Metaxalone (Metaxalone) 800 Mg Tab, 800 MG PO TID, TAB 12/12/18 Citalopram Hydrobromide (Citalopram Hydrobromide) 40 Mg Tab, 40 MG PO DAILY for 30 Days, MG 12/12/18 Oxybutynin Chloride (Oxybutynin Chloride) 5 Mg/5 Ml Syp, 5 MG PO DAILY, SYP 12/12/18 Clonidine Hydrochloride (Clonidine Hcl) 0.1 Mg Tab, 0.1 MG PO HSPRN for 30 Days, MG 05/16/18 Hydrocodone-Acetaminophen ([place] 10-325 mg) 1 Tab Tab, 1 TAB PO TIDP, TAB 05/16/18 Gabapentin (Neurontin) 100 Mg Cap, 1 CAP PO TID, #90 CAP 2 Refills 05/16/18 Omeprazole (Omeprazole) 20 Mg Cap, 20 MG PO DAILY, CAP 05/16/18 Atorvastatin Calcium (ATORVASTATIN CALCIUM) 10 Mg Tab, 1 TAB PO HS, #30 TAB 5 Refills 05/16/18 Meloxicam (Meloxicam) 7.5 Mg Tab, 1 TAB PO DAILY, #30 TAB 2 Refills 05/16/18 Enalapril Maleate (VASOTEC TABLET) 10 Mg Tb, 1 TAB PO HS, #30 TAB 5 Refills 05/16/18 Carvedilol (Carvedilol) 12.5 Mg Tab, 12.5 MG PO Q12HR for 30 Days, MG 05/16/18 Current Medications Current Medications Medications (Trade) Dose Ordered Sig/Francisco Javier Route PRN Reason Start Time Stop Time Status Last Admin Sodium Chloride 1,000 ml @ 120 mls/hr Q8H20M IV 11/22/23 11:45 Ondansetron HCl (Zofran) 4 mg Q4HP PRN IV NAUSEA / VOMITING 11/22/23 11:45 Docusate Sodium (Colace Capsule) 100 mg BIDPRN PRN PO FOR CONSTIPATION 11/22/23 11:45 Morphine Sulfate 2 mg Q4HPRN PRN IV SEVERE PAIN (7-10 PAIN SCALE) 11/22/23 11:45 Enoxaparin Sodium (Lovenox) 40 mg DAILY SC 11/22/23 11:45 UNV Carvedilol (Coreg Tablet) 12.5 mg Q12HR PO 11/22/23 22:00 Clonidine HCl (Catapres Tablet) 0.1 mg HSPRN PO 11/22/23 22:00 Enalapril Maleate (Vasotec Tablet) 10 mg HS PO 11/22/23 22:00 Gabapentin (Neurontin Capsule) 100 mg TID PO 11/22/23 14:00 Patient Own Medication 1 tab HS PO 11/22/23 22:00 UNV Patient Own Medication 40 mg DAILY PO 11/23/23 10:00 UNV Patient Own Medication 1 tab DAILY PO 11/23/23 10:00 UNV Patient Own Medication 800 mg TID PO 11/22/23 14:00 UNV Patient Own Medication 20 mg DAILY PO 11/23/23 10:00 UNV Patient Own Medication 5 mg DAILY PO 11/23/23 10:00 UNV Review of Systems 10 point review of systems negative except as per HPI Vital Signs Vital Signs Date Time Temp Pulse Resp B/P (MAP) Pulse Ox O2 Delivery O2 Flow Rate FiO2 11/22/23 11:51 75 14 127/67 (87) 97 11/22/23 11:06 2.0 28 11/22/23 08:35 Room Air* 11/22/23 07:15 98.8 Physical Exam General appearance: A&O x4 in mild distress HEENT: Normal ENT inspection, pharynx normal, TMs normal Neck: Full range of motion, nontender, normal inspection Respiratory: Chest nontender, without accessory muscle use, no respiratory distress Cardiovascular: No edema, no JVD, normal peripheral pulses Gastrointestinal: Soft, nontender, no organomegaly. Musculoskeletal: Left hip range of motion grossly limited with pain on slight movement, no calf tenderness, normal capillary refill, no pedal edema, neurovascularly intact. Skin: Dry, normal color, warm Lymphatic: No adenopathy Labs/Diagnostic Data Labs Test 11/22/23 08:55 Range/Units White Blood Count 7.5 4.4-10.8 10^3/uL Red Blood Count 4.51 4.5-5.90 10^6/uL Hemoglobin 12.8 L 13.5-17.5 g/dL Hematocrit 38.3 L 41.0-53.0 % Mean Corpuscular Volume 84.9 80.0-100.0 fL Mean Corpuscular Hemoglobin 28.3 28.0-32.0 pg Mean Corpuscular Hemoglobin Concent 33.3 32.0-36.0 g/dL Red Cell Distribution Width 15.2 H 11.8-14.3 % Platelet Count 161 140-450 10^3/uL Mean Platelet Volume 7.7 6.9-10.8 fL Neutrophils (%) (Auto) 77.0 37.0-80.0 % Lymphocytes (%) (Auto) 13.4 10.0-50.0 % Monocytes (%) (Auto) 8.0 0.0-12.0 % Eosinophils (%) (Auto) 1.3 0.0-7.0 % Basophils (%) (Auto) 0.3 0.0-2.0 % Neutrophils # (Auto) 5.7 1.6-8.6 10 ^3/uL Lymphocytes # (Auto) 1.0 0.4-5.4 10 ^3/uL Monocytes # (Auto) 0.6 0-1.3 10 ^3/uL Eosinophils # (Auto) 0.1 0-0.8 10 ^3/uL Basophils # (Auto) 0 0-0.2 10 ^3/uL Nucleated Red Blood Cells 0.0 % Sodium Level 137 136-145 mmol/L Potassium Level 3.9 3.5-5.1 mmol/L Chloride Level 105 98-107 mmol/L Carbon Dioxide Level 25 20-31 mmol/L Anion Gap 7 5-15 Blood Urea Nitrogen 18 9-23 mg/dL Creatinine 0.89 0.700-1.30 mg/dL Glomerular Filtration Rate Calc 94 >90 mL/min BUN/Creatinine Ratio 20.2 H 10.0-20.0 Serum Glucose 96 74-106 mg/dL Calcium Level 9.7 8.7-10.4 mg/dL Magnesium Level 2.0 1.6-2.6 mg/dL Total Bilirubin 1.0 0.2-1.0 mg/dL Aspartate Amino Transferase (AST) 131 H 13-40 U/L Alanine Aminotransferase (ALT) 108 H 7-40 U/L Alkaline Phosphatase 192 H 46-116 U/L Total Protein 6.7 5.7-8.2 g/dL Albumin 4.0 3.2-4.8 g/dL Left hip x-ray reviewed and demonstrated:Right hip arthroplasty and dislocated femoral component of left hip arthroplasty. Assessment Left hip arthroplasty dislocation Plan/Recommendation I had a lengthy discussion with the patient and his regarding nonoperative versus operative management and after discussing his case and reviewing his imaging studies with Dr. Duncan we have recommended a closed reduction of his left arthroplasty hip dislocation. I discussed all of the risks and complications involved with surgery including but not limited to nerve injury, chronic pain, need for further surgery, blood clots, DVT, PE, cardiac and pulmonary complications, and even . He understood and agreed to proceed with the surgery. We will plan to undergo surgery tomorrow afternoon if schedule allows and patient remains medically stable. Thank you for allowing us to participate in the care of your patient. Plan discussed with: Patient HERNÁN ART Sreedhar GRANADOS Nov 22, 2023 12:16
[2023-11-22] MEDS: ENOXAPARIN SOD 40 MG/0.4 ML SYRINGE SC SCH (12:37)
[2023-11-22] MEDS: SODIUM CHLORIDE 0.9% 1,000 ML IV SCH (12:37)
[2023-11-22] MEDS ORDERED: NITROGLYCERIN 0.4 MG SL TAB SL PRN (13:15)
[2023-11-22] MEDS: METAXALONE 800 MG PO SCH (14:00)
--- NOTE | 2023-11-22 15:08 | DVHSR ---
APPROVED REPORT EXAM: Two-dimensional and M-mode echocardiogram with Doppler and color Doppler. Blood Pressure: 127/67 mmHg INDICATION Pre-Op RISK FACTORS Height: 6'1", Weight: 132 DIMENSIONS LVDd5.7 (3.8-5.7cm)LA (2D)4.3 (1.9-4.0cm)Aortic Root3.7 (2.0-3.7cm) LVDs4.7 (2.5-4.0cm)LA (MM) (1.9-4.0cm)Aortic Cusp Exc2.1 (1.5-2.0cm) EF (%) 37.0 (55-70%)Rt. Atrium3.8 (1.9-4.0cm)Asc. Aorta cm IVSd1.1 (0.7-1.1cm)RV (D)3.1 (1.8-2.4cm) PWd0.8 (0.7-1.1cm) Mitral Valve MitralMitral Stenosis E wave0.69m/sMV Mean GR.mmHg A wave0.67m/sMV Peak GR.mmHg E/A ratio1.02D MVAcm2 DECEL [id number] 1/2 Tim[place] Aortic Valve Aortic ValveAortic Stenosis V10.87m/Susan Mean GR.3mmHg V21.23m/Susan Peak GR.6mmHg LVOT Diameter2.5 (1.8-2.4cm)Doppler AVA3.47cm2 Pulmonic Valve V20.94m/s Tricuspid Valve TR Velocity2.99m/s [id number] Other Information Technically limited study due to body habitus, position, patient uncooperative and would not lay sti ll. Conclusion lvef 45% by visual estimate dilated LV mild moderate MVP is noted mild to moderate mitral regurg this could be underestimated left atrium enlarged mild
[2023-11-22] MEDS: PANTOPRAZOLE 40 MG TAB PO SCH (15:16)
[2023-11-22] MEDS: GABAPENTIN 100 MG CAP PO SCH (15:16)
--- NOTE | 2023-11-22 15:23 | DVHINCON2 ---
Date of service: Nov 22, 2023 History of Present Illness 68 yo M office pt of mine hx of chronic pain on fent, hip surgery, htn , frailty admitted for ortho fx. pt was getting into bed and had severe hip pain. he had surgery 2018. Past Medical History reviewed Family History: Cardiovascular disease G8 FATHER Allergies: Coded Allergies: NO KNOWN ALLERGIES (Unverified , 12/12/18) Home Meds Reported Medications Fentanyl (Fentanyl) 75 Mcg/Hr Dis, 75 MCG TD Q72HR, DIS 12/12/18 Metaxalone (Metaxalone) 800 Mg Tab, 800 MG PO TID, TAB 12/12/18 Citalopram Hydrobromide (Citalopram Hydrobromide) 40 Mg Tab, 40 MG PO DAILY for 30 Days, MG 12/12/18 Oxybutynin Chloride (Oxybutynin Chloride) 5 Mg/5 Ml Syp, 5 MG PO DAILY, SYP 12/12/18 Clonidine Hydrochloride (Clonidine Hcl) 0.1 Mg Tab, 0.1 MG PO HSPRN for 30 Days, MG 05/16/18 Hydrocodone-Acetaminophen ([place] 10-325 mg) 1 Tab Tab, 1 TAB PO TIDP, TAB 05/16/18 Gabapentin (Neurontin) 100 Mg Cap, 1 CAP PO TID, #90 CAP 2 Refills 05/16/18 Omeprazole (Omeprazole) 20 Mg Cap, 20 MG PO DAILY, CAP 05/16/18 Atorvastatin Calcium (ATORVASTATIN CALCIUM) 10 Mg Tab, 1 TAB PO HS, #30 TAB 5 Refills 05/16/18 Meloxicam (Meloxicam) 7.5 Mg Tab, 1 TAB PO DAILY, #30 TAB 2 Refills 05/16/18 Enalapril Maleate (VASOTEC TABLET) 10 Mg Tb, 1 TAB PO HS, #30 TAB 5 Refills 05/16/18 Carvedilol (Carvedilol) 12.5 Mg Tab, 12.5 MG PO Q12HR for 30 Days, MG 05/16/18 Current Medications Current Medications Medications (Trade) Dose Ordered Sig/Francisco Javier Route PRN Reason Start Time Stop Time Status Last Admin Sodium Chloride 1,000 ml @ 120 mls/hr Q8H20M IV 11/22/23 11:45 11/22/23 12:37 Ondansetron HCl (Zofran) 4 mg Q4HP PRN IV NAUSEA / VOMITING 11/22/23 11:45 Docusate Sodium (Colace Capsule) 100 mg BIDPRN PRN PO FOR CONSTIPATION 11/22/23 11:45 Morphine Sulfate 2 mg Q4HPRN PRN IV SEVERE PAIN (7-10 PAIN SCALE) 11/22/23 11:45 Enoxaparin Sodium (Lovenox) 40 mg DAILY SC 11/22/23 11:45 11/22/23 12:37 Carvedilol (Coreg Tablet) 12.5 mg Q12HR PO 11/22/23 22:00 Clonidine HCl (Catapres Tablet) 0.1 mg HSPRN PO 11/22/23 22:00 Enalapril Maleate (Vasotec Tablet) 10 mg HS PO 11/22/23 22:00 Gabapentin (Neurontin Capsule) 100 mg TID PO 11/22/23 14:00 11/22/23 15:16 Atorvastatin Calcium (Lipitor) 10 mg HS PO 11/22/23 22:00 Citalopram Hydrobromide (CeleXA TABLET) 40 mg DAILY PO 11/23/23 10:00 Patient Own Medication 1 tab DAILY PO 11/23/23 10:00 Patient Own Medication 800 mg TID PO 11/22/23 14:00 Pantoprazole Sodium (Protonix Tablet) 40 mg DAILY PO 11/22/23 13:00 11/22/23 15:16 Oxybutynin Chloride (Ditropan Tablet) 5 mg DAILY PO 11/23/23 13:00 Nitroglycerin (Ntrostat Sublingual) 0.4 mg Q5MINP PRN SL FOR CHEST PAIN 11/22/23 13:15 UNV Review of Systems 10 pt ros otherwise negative Vital Signs Vital Signs Date Time Temp Pulse Resp B/P (MAP) Pulse Ox O2 Delivery O2 Flow Rate FiO2 11/22/23 14:47 77 16 140/84 (102) 11/22/23 13:01 96 11/22/23 11:06 2.0 28 11/22/23 08:35 Room Air* 11/22/23 07:45 98.8 98.8 Physical Exam nad s1 s 2 rrr ctab soft nt/nd no edema Labs/Diagnostic Data Labs Test 11/22/23 08:55 Range/Units White Blood Count 7.5 4.4-10.8 10^3/uL Red Blood Count 4.51 4.5-5.90 10^6/uL Hemoglobin 12.8 L 13.5-17.5 g/dL Hematocrit 38.3 L 41.0-53.0 % Mean Corpuscular Volume 84.9 80.0-100.0 fL Mean Corpuscular Hemoglobin 28.3 28.0-32.0 pg Mean Corpuscular Hemoglobin Concent 33.3 32.0-36.0 g/dL Red Cell Distribution Width 15.2 H 11.8-14.3 % Platelet Count 161 140-450 10^3/uL Mean Platelet Volume 7.7 6.9-10.8 fL Neutrophils (%) (Auto) 77.0 37.0-80.0 % Lymphocytes (%) (Auto) 13.4 10.0-50.0 % Monocytes (%) (Auto) 8.0 0.0-12.0 % Eosinophils (%) (Auto) 1.3 0.0-7.0 % Basophils (%) (Auto) 0.3 0.0-2.0 % Neutrophils # (Auto) 5.7 1.6-8.6 10 ^3/uL Lymphocytes # (Auto) 1.0 0.4-5.4 10 ^3/uL Monocytes # (Auto) 0.6 0-1.3 10 ^3/uL Eosinophils # (Auto) 0.1 0-0.8 10 ^3/uL Basophils # (Auto) 0 0-0.2 10 ^3/uL Nucleated Red Blood Cells 0.0 % Sodium Level 137 136-145 mmol/L Potassium Level 3.9 3.5-5.1 mmol/L Chloride Level 105 98-107 mmol/L Carbon Dioxide Level 25 20-31 mmol/L Anion Gap 7 5-15 Blood Urea Nitrogen 18 9-23 mg/dL Creatinine 0.89 0.700-1.30 mg/dL Glomerular Filtration Rate Calc 94 >90 mL/min BUN/Creatinine Ratio 20.2 H 10.0-20.0 Serum Glucose 96 74-106 mg/dL Calcium Level 9.7 8.7-10.4 mg/dL Magnesium Level 2.0 1.6-2.6 mg/dL Total Bilirubin 1.0 0.2-1.0 mg/dL Aspartate Amino Transferase (AST) 131 H 13-40 U/L Alanine Aminotransferase (ALT) 108 H 7-40 U/L Alkaline Phosphatase 192 H 46-116 U/L Total Protein 6.7 5.7-8.2 g/dL Albumin 4.0 3.2-4.8 g/dL Assessment frailty chronic pain ortho fx htn hl Plan/Recommendation [facility] 2018 was - for cad mild LV dysfunctio noted on echo with MVP and mitral regurg do not over hydrate, avoid severe HTN intraop ecg shows SR, non specific changes, non ischemic pt can proceed to OR at acceptable intermediate risk Plan discussed with: Patient WEI AG MD Nov 22, 2023 15:23
[2023-11-22 17:45] VITALS: BP 161/96; PULSE 78; RESP 18; TEMP 100; O2SAT 92
[2023-11-22 18:01] VITALS: PULSE 78; RESP 18
[2023-11-22 20:00] VITALS: PULSE 64; RESP 17; O2SAT 97
[2023-11-22 21:00] VITALS: BP 182/92; PULSE 64; RESP 17; TEMP 99; O2SAT 97
[2023-11-22] MEDS: cloNIDine HCL 0.1 MG TAB PO SCH (21:15)
[2023-11-22] MEDS: ATORVASTATIN 20 MG TAB PO SCH (21:16)
[2023-11-22] MEDS: CARVEDILOL 12.5 MG TAB PO SCH (21:16)
[2023-11-22] MEDS: ENALAPRIL MALEATE 10 MG TAB PO SCH (21:17)
[2023-11-22] MEDS: hydrALAZINE HCL 20 MG/ML VL IV PRN (21:49)
[2023-11-22] MEDS: MORPHINE SULFATE INJ 2 MG/ml SYRG IV PRN (22:27)
[2023-11-22 23:31] LABS: Urine Bacteria None Seen /hpf (None Seen); Urine WBC None Seen /hpf (0 - 3)
[2023-11-22] MEDS: TEMAZEPAM 15 MG CAP PO ONE (23:35)
[2023-11-22 23:48] LABS: Urine Blood TRACE /uL (Negative); Urine Clarity Clear (Clear); Urine Color Light-Yellow (Yellow); Urine Protein, UAD Negative (Negative); Urine Specific Gravity 1.018 (1.001-1.035); Urine Urobilinogen Normal (Negative)
[2023-11-23] VITALS (7 sets, daily range): BP systolic 96–158; BP diastolic 52–80; PULSE 59–92; RESP 15–20; TEMP 98–98.9; O2SAT 93–100
[2023-11-23 06:55] LABS: Basophils # (auto) 0 10 ^3/uL (0-0.2); Basophils % (auto) 0.3 % (0.0-2.0); Eosinophils # (auto) 0 10 ^3/uL (0-0.8); Eosinophils % (auto) 0.2 % (0.0-7.0); Lymphocytes # (auto) 1.2 10 ^3/uL (0.4-5.4); Lymphocytes % (auto) 13.7 % (10.0-50.0); Mean Corpuscular Hemoglobin 28.6 pg (28.0-32.0); Mean Corpuscular Hgb Conc. 33.4 g/dL (32.0-36.0); Mean Corpuscular Volume 85.7 fL (80.0-100.0); Monocytes # (auto) 0.9 10 ^3/uL (0-1.3); Neutrophils # (auto) 6.4 10 ^3/uL (1.6-8.6); Neutrophils % (auto) 74.8 % (37.0-80.0); Nucleated Red Blood Cells % 0.1 %; Platelet Count (auto) 173 10^3/uL (140-450); White Blood Cell 8.6 10^3/uL (4.4-10.8)
--- NOTE | 2023-11-23 07:03 | DVH ---
CHEST RADIOGRAPH Indication:surgery pain Technique: Single frontal view of the chest was obtained Comparison: CHEST PORTABLE on DOS: 12/13/18 FINDINGS: Lines and Tubes: None Lungs: No focal consolidation. Pleura: No effusion. No pneumothorax. Cardiomediastinal contours: Unremarkable Bones: Left total hip arthroplasty IMPRESSION: No acute cardiopulmonary disease.
[2023-11-23 07:04] LABS: INR 1.08 (0.9-1.15); Partial Thromboplastin Time 25.6 SEC (24.5-34.5); Prothrombin Time 11.4 sec (9.3-11.8)
[2023-11-23 07:08] LABS: Alanine Aminotransferase 88 U/L (7-40); Albumin 3.8 g/dL (3.2-4.8); Alkaline Phosphatase 162 U/L (46-116); Anion Gap 9 (5-15); Aspartate Aminotransferase 96 U/L (13-40); Blood Urea Nitrogen 12 mg/dL (9-23); Calcium 9.2 mg/dL (8.7-10.4); Carbon Dioxide 25 mmol/L (20-31); Chloride 105 mmol/L (98-107); Glucose 83 mg/dL (74-106); Potassium 3.6 mmol/L (3.5-5.1); Sodium 139 mmol/L (136-145)
[2023-11-23 07:09] LABS: Bilirubin, Total 1.1 mg/dL (0.2-1.0); Total Protein 6.3 g/dL (5.7-8.2)
[2023-11-23] MEDS: CITALOPRAM HYDROBR 20 MG TAB PO SCH ×2 (08:39→19:31)
[2023-11-23] MEDS: MELOXICAM 7.5 MG PO SCH (10:00)
--- NOTE | 2023-11-23 10:09 | DVHPNRES ---
Progress Note Date Seen: Nov 23, 2023 Resident Creating Document: KRISTIN HAM RESIDENT Has the PT tested + for MRSA If YES, has PT been informed?: No Medical Necessity Reason Pt with a Central, PICC or Fol: No Subjective Review of Systems A 68-year-old male with past medical history of arthritis depression GERD CAD hyperlipidemia hypertension who came due to an episode of left hip dislocation which was attempt to be reduce in the ER unsuccessfully. patient was assessed by ortho team who consider close reduction of the dislocation. Also patient was seen by Dr. Marcano for a surgical clearance. Close reduction will be today in the afternoon Objective vital signs Vital Sign Date Time Temp Pulse Resp B/P (MAP) Pulse Ox O2 Delivery O2 Flow Rate FiO2 11/23/23 08:40 71 158/71 11/23/23 08:22 98.4 16 97 98.4 11/22/23 20:00 Room Air* 0 21 Total Intake and Output 11/22/23 11/22/23 11/23/23 15:00 23:00 07:00 Intake Total 1190 ml 360 ml 0 ml Output Total 800 ml Balance 1190 ml 360 ml -800 ml medications Current Medications Medications Dose Ordered Sig/Francisco Javier Route Start Time Stop Time Status Last Admin Dose Admin Ondansetron HCl 4 mg Q4HP PRN IV 11/22/23 11:45 Docusate Sodium 100 mg BIDPRN PRN PO 11/22/23 11:45 Morphine Sulfate 2 mg Q4HPRN PRN IV 11/22/23 11:45 11/22/23 22:27 2 MG Enoxaparin Sodium 40 mg DAILY SC 11/22/23 11:45 11/22/23 12:37 40 MG Carvedilol 12.5 mg Q12HR PO 11/22/23 22:00 11/23/23 08:40 12.5 MG Clonidine HCl 0.1 mg HSPRN PO 11/22/23 22:00 11/22/23 21:15 0.1 MG Enalapril Maleate 10 mg HS PO 11/22/23 22:00 11/22/23 21:17 10 MG Gabapentin 100 mg TID PO 11/22/23 14:00 11/22/23 21:16 100 MG Atorvastatin Calcium 10 mg HS PO 11/22/23 22:00 11/22/23 21:16 10 MG Citalopram Hydrobromide 40 mg DAILY PO 11/23/23 10:00 11/23/23 08:39 40 MG Patient Own Medication 1 tab DAILY PO 11/23/23 10:00 Patient Own Medication 800 mg TID PO 11/22/23 14:00 Pantoprazole Sodium 40 mg DAILY PO 11/22/23 13:00 11/23/23 08:40 40 MG Oxybutynin Chloride 5 mg DAILY PO 11/23/23 13:00 Nitroglycerin 0.4 mg Q5MINP PRN SL 11/22/23 13:15 Hydralazine HCl 10 mg Q4HPRN PRN IV 11/22/23 21:30 11/22/23 21:49 10 MG Examination General appearance: A&O x4 in mild distress HEENT: Normal ENT inspection, pharynx normal, TMs normal Neck: Full range of motion, nontender, normal inspection Respiratory: Chest nontender, without accessory muscle use, no respiratory distress Cardiovascular: No edema, no JVD, normal peripheral pulses Gastrointestinal: Soft, nontender, no organomegaly. Musculoskeletal: Left hip range of motion grossly limited with pain on slight movement, no calf tenderness, normal capillary refill, no pedal edema, neurovascularly intact. Skin: Dry, normal color, warm Lymphatic: No adenopathy laboratory and microbiology Laboratory Tests 11/23/23 05:42 Test 11/23/23 05:42 Range/Units Serum Glucose 83 74-106 mg/dL Labs and/or images reviewed: Labs reviewed by me, Image(s) reviewed by me Problem List/Assessment/Plan Problem List/Assessment/Plan #Acute left hip dislocation #s/p bilateral hip arthroplasty x-ray: Right hip arthroplasty. Dislocated femoral component of left hip arthroplasty. Per orhto: closed reduction of his left arthroplasty hip dislocation NPO Pending for procedure Cardiology clearance per Dr Marcano SS consult in advance DC planning with home health #Hypertensive heart disease with chronic systolic disfunction #CAD [facility] 2019: pt states no stents ECHO: lvef 45% by visual estimate dilated LV mild moderate MVP is noted mild to moderate mitral reg. this could be underestimated left atrium enlarged mild Pt is on enalapril, carvedilol and clonidine #transaminitis can do outpt workup #GERD Protonix #Hyperlipidemia cont home medication #chronic back pain #depression #arthritis Goals of care discussed with patient, and for 20 minutes; full code. Case discussed with Dr Pool Plan discussed with: Patient, Other (rn) Addendum Addendum Addendum I was physically present for the strauss portions of the service provided to patient by THE RESIDENT. I have reviewed the documentation, discussed the case with resident and agree with the resident's documentation except as noted. Also the patient's clinical case was discussed with the patient's nurse. This medical document was created using an electronic medical record system with computerized dictation system. Although this document has been carefully reviewed, there might still be some phonetic and typographical errors. These areas are purely typographical due to imperfections of the software programs, and do not reflect any compromise in the patient's medical care. Late signature. Date of Service: Nov 23, 2023 Billing Provider: VAN POOL MD Common Visit Codes: [id number] INP/OBS CARE(HIGH) Secondary Visit Codes: [id number] CARE PLAN 30 MINUTES (20 minutes) KRISTIN HAM RESIDENT Nov 23, 2023 10:09 VAN POOL MD Nov 25, 2023 04:59
[2023-11-23] MEDS ORDERED: OXY5T PO (12:39)
[2023-11-23] MEDS ORDERED: TEMA30CA PO (12:46)
[2023-11-23] MEDS ORDERED: CITA-73 PO (12:46)
[2023-11-23] MEDS ORDERED: GABA-1250 PO (12:46)
[2023-11-23] MEDS ORDERED: OXYB5TAB14 PO (12:46)
[2023-11-23] MEDS: OXYBUTYNIN CHL 5 MG TAB PO SCH (13:12)
[2023-11-23] MEDS ORDERED: PROPOFOL 10 MG/ML 20 ML IV ONE ×2 (15:36→16:27)
[2023-11-23] MEDS ORDERED: fentaNYL CITRATE 100 MCG/2 ML VL ONE (15:36)
[2023-11-23] MEDS ORDERED: MEPERIDINE HCL (25 MG/ML) 1ML VIAL ONE (16:21)
[2023-11-23] MEDS ORDERED: ePHEDrine SULFATE 50 MG/ML AMP ONE (16:28)
[2023-11-23] MEDS ORDERED: cloNIDine HCL 0.1 MG TAB PO PRN (17:00)
[2023-11-23] MEDS: ONDANSETRON HCL 4 MG/2 ML VIAL IV ONE (17:15)
[2023-11-23] MEDS ORDERED: ACETAMINOPHEN IV 1000 MG/100ML (10MG/ML) IV PRN (17:15)
[2023-11-23] MEDS ORDERED: MEPERIDINE HCL (25 MG/ML) 1ML VIAL IV PRN (17:15)
--- NOTE | 2023-11-23 18:25 | DVH ---
EXAM: XY L HIP COMPLETE XRAY, XY C ARM FLUOROSCOPY UP TO 60MIN HISTORY: LT HIP ORIF FLUOROSCOPY TIME: 39.5 FLUOROSCOPY IMAGES: 1 TECHNIQUE: Intraoperative radiographs of the left hip were obtained. COMPARISON: XY L HIP COMPLETE XRAY on DOS: 11/22/23, L HIP COMPLETE XRAY on DOS: 12/13/18 FINDINGS/IMPRESSION: Refer to intraoperative report for further evaluation.
[2023-11-23] MEDS: GABAPENTIN 100 MG CAP PO SCH (19:32)
[2023-11-23] MEDS: ONDANSETRON HCL 4 MG/2 ML VIAL IV PRN (19:48)
--- NOTE | 2023-11-23 20:32 | DVHOP2 ---
Operative Report - 2 Report Details Date: 11/23/23 Preop Diagnosis: Left total hip posterior dislocation Postop Diagnosis: Left total hip posterior dislocation Surgeon: Fadumo Duncan MD Golf Instructor: Yokasta Joseph, Physician Golf Instructor Anesthesiologist: DR Jean Anesthesia: General Implant: None Consent: The patient was informed of the risks and benefits of the procedure. These include but are not limited to complications of anesthesia, postoperative infection, incomplete relief of symptoms, recurrence of symptoms, damage to blood vessels, nerves and tendons, deep venous thrombosis, pulmonary embolism and possible need for repeat surgery in the future. Complications: None Estimated Blood Loss: None Indications for Surgery: The patient is a 68-year-old male who presented to the emergency room with a history of pain in the hip. Clinical and radiological evaluation demonstrated total hip prosthesis dislocation. An reduction attempt was made in the ER but was unsuccessful. Orthopedics was consulted for further management. On further assessment, it was noted that patient had total hip done bilaterally. He also had distal femur fracture on the ipsilateral side that was treated with open reduction internal fixation in the past. The patient had multiple dislocations in the past, more than 10. Nonoperative and operative management options were discussed. Closed reduction was discussed with the patient. It was explicitly mentioned to the patient before the procedure that this seizure would not involve open reduction as that would be a major procedure with was healed revision of one or both components. The patient voiced understanding of the same and mentioned that we will likely see Dr. Basurto for the same if po ssible, as he treated his other side. Procedural complications such as neurovascular injury, dislocation again, periprosthetic fracture, loss of limb or life were discussed with him. He decided to proceed with the closed reduction Name of Procedure Performed Left hip closed reduction, unsuccessful Procedure Details Procedure Details: The patient was identified in the preoperative holding area and the surgical site was marked. The consent was verified. He was brought into the operating room and placed supine on the operating table. General anesthesia was administered. Intravenous antibiotics were given. The extremity was prepped and draped in the usual sterile manner. A time-out was called to confirm the identity of the patient, the nature of surgery, the site of procedure, the availability of implants and x-rays and allergies to medications. Reduction was attempted 1st with the hip in flexion and traction and internal rotation. This was unsuccessful. The patient was noted to be in a lot of spasm and further muscle relaxation was given. I decided to reduce it on the [place] table. The patient's leg was extended as much as possible and fit into the traction boot. Gradually, traction was applied slowly. The femoral head did line up with the acetabular cup but was not reduced. I once again attempted reduction with the hip in flexion and traction and some adduction and the joint was reduced with a palpable clunk. However when the hip was extended even slightly for x-rays, another clunk was noted and the hip dislocated. This happened multiple times and the hip would not stay in even with flexion slightly less than 90. After multiple attempts to contain the hip, it was concluded that the hip is highly unstable and will require a major revision and possible transfer to the tertiary center. I discussed this case with my hip replacement colleagues and they recommended higher level of care due to the complexity of the case. The patient was extubated and taken to the recovery without any complications. Condition Good Disposition Still a Patient FADUMO DUNCAN MD Nov 23, 2023 20:31
[2023-11-23] MEDS: fentaNYL 75MCG/HR 75 MCG/HR PAT TD SCH (22:19)
[2023-11-24] VITALS (7 sets, daily range): BP systolic 95–126; BP diastolic 50–68; PULSE 56–70; RESP 18–19; TEMP 98–98.4; O2SAT 94–96
[2023-11-24 08:27] LABS: Basophils # (auto) 0 10 ^3/uL (0-0.2); Basophils % (auto) 0.3 % (0.0-2.0); Eosinophils # (auto) 0.3 10 ^3/uL (0-0.8); Eosinophils % (auto) 4.4 % (0.0-7.0); Hematocrit 35.9 % (41.0-53.0); Hemoglobin 11.9 g/dL (13.5-17.5); Lymphocytes # (auto) 1.1 10 ^3/uL (0.4-5.4); Lymphocytes % (auto) 16.9 % (10.0-50.0); Mean Corpuscular Hemoglobin 28.2 pg (28.0-32.0); Mean Corpuscular Hgb Conc. 33.2 g/dL (32.0-36.0); Monocytes # (auto) 0.7 10 ^3/uL (0-1.3); Monocytes % (auto) 11.8 % (0.0-12.0); Neutrophils # (auto) 4.2 10 ^3/uL (1.6-8.6); Neutrophils % (auto) 66.6 % (37.0-80.0); Nucleated Red Blood Cells % 0.1 %; Platelet Count (auto) 146 10^3/uL (140-450); Red Blood Cells 4.23 10^6/uL (4.5-5.90); Red Cell Distribution Width 15.5 % (11.8-14.3); White Blood Cell 6.3 10^3/uL (4.4-10.8)
[2023-11-24 08:38] LABS: Chloride 108 mmol/L (98-107); Potassium 4.2 mmol/L (3.5-5.1); Sodium 138 mmol/L (136-145)
[2023-11-24 08:39] LABS: Anion Gap 2 (5-15); Calcium 8.5 mg/dL (8.7-10.4); Carbon Dioxide 28 mmol/L (20-31)
[2023-11-24 08:44] LABS: BUN/Creatinine Ratio 19.8 (10.0-20.0); Blood Urea Nitrogen 16 mg/dL (9-23); Glucose 99 mg/dL (74-106)
--- NOTE | 2023-11-24 14:31 | DVHPNRES ---
Progress Note Date Seen: Nov 24, 2023 Resident Creating Document: KRISTIN HAM RESIDENT Has the PT tested + for MRSA If YES, has PT been informed?: No Medical Necessity Reason Pt with a Central, PICC or Fol: No Subjective Review of Systems A 68-year-old male with past medical history of arthritis depression GERD CAD hyperlipidemia hypertension who came due to an episode of left hip dislocation which was attempt to be reduce in the ER unsuccessfully. patient was assessed by ortho team who consider close reduction of the dislocation. Also patient was seen by Dr. Marcano for a surgical clearance and he approved. On Nov, the close reduction was attempted in the OR but was unsuccessful so Dr Truong, ortho surgeon, consider transfer to high level of care Objective vital signs Vital Sign Date Time Temp Pulse Resp B/P (MAP) Pulse Ox O2 Delivery O2 Flow Rate FiO2 11/24/23 12:01 98.1 63 19 113/65 (81) 96 98.1 11/24/23 08:00 Room Air* 0 21 Total Intake and Output 11/23/23 11/23/23 11/24/23 15:00 23:00 07:00 Intake Total 360 ml 344 ml Output Total 400 ml 600 ml Balance 360 ml -400 ml -256 ml medications Current Medications Medications Dose Ordered Sig/Francisco Javier Route Start Time Stop Time Status Last Admin Dose Admin Ondansetron HCl 4 mg Q4HP PRN IV 11/22/23 11:45 11/23/23 19:48 4 MG Docusate Sodium 100 mg BIDPRN PRN PO 11/22/23 11:45 Morphine Sulfate 2 mg Q4HPRN PRN IV 11/22/23 11:45 11/24/23 09:21 2 MG Enoxaparin Sodium 40 mg DAILY SC 11/22/23 11:45 11/24/23 09:22 40 MG Carvedilol 12.5 mg Q12HR PO 11/22/23 22:00 11/23/23 22:16 12.5 MG Enalapril Maleate 10 mg HS PO 11/22/23 22:00 11/23/23 22:16 10 MG Atorvastatin Calcium 10 mg HS PO 11/22/23 22:00 11/23/23 22:18 10 MG Patient Own Medication 1 tab DAILY PO 11/23/23 10:00 Pantoprazole Sodium 40 mg DAILY PO 11/22/23 13:00 11/24/23 09:12 40 MG Oxybutynin Chloride 5 mg DAILY PO 11/23/23 13:00 11/24/23 09:12 5 MG Nitroglycerin 0.4 mg Q5MINP PRN SL 11/22/23 13:15 Hydralazine HCl 10 mg Q4HPRN PRN IV 11/22/23 21:30 11/22/23 21:49 10 MG Fentanyl 75 mcg Q72H TD 11/23/23 22:00 11/23/23 22:19 75 MCG Gabapentin 400 mg TID PO 11/23/23 15:30 11/24/23 06:29 400 MG Citalopram Hydrobromide 20 mg QPM PO 11/23/23 18:00 11/23/23 19:31 20 MG Clonidine HCl 0.1 mg Q6HP PRN PO 11/23/23 17:00 Examination General appearance: A&O x4 in mild distress HEENT: Normal ENT inspection, pharynx normal, TMs normal Neck: Full range of motion, nontender, normal inspection Respiratory: Chest nontender, without accessory muscle use, no respiratory distress Cardiovascular: No edema, no JVD, normal peripheral pulses Gastrointestinal: Soft, nontender, no organomegaly. Musculoskeletal: Left hip range of motion grossly limited with pain on slight movement, no calf tenderness, normal capillary refill, no pedal edema, neurovascularly intact. Skin: Dry, normal color, warm Lymphatic: No adenopathy laboratory and microbiology Laboratory Tests 11/24/23 08:07 Test 11/24/23 08:07 Range/Units Serum Glucose 99 74-106 mg/dL Problem List/Assessment/Plan Problem List/Assessment/Plan #acute left hip dislocation #s/p bilateral hip arthoplasty in 2016 xray: Right hip arthroplasty. Dislocated femoral component of left hip arthroplasty. Per ortho: closed reduction of his left arthroplasty hip dislocation was unsuccessful so it was consider to transfer the patient to a high level care: he will require a major revision due to the complexity of the case Cardiology clearance per Dr Marcano SS consult for transfer to high level of care #Hypertensive heart disease with chronic systolic disfunction #CAD [facility] 2019: pt states no stents ECHO: lvef 45% by visual estimate dilated LV mild moderate MVP is noted mild to moderate mitral regurg this could be underestimated left atrium enlarged mild Pt is on enalapril, carvedilol and clonidine for BP #transaminitis can do outpt workup #GERD protonix #Hyperlipidimia cont home medication #chronic back pain #depression #arthritis Case discussed with Dr Goldberg Plan discussed with: Patient, Other (rn) Date of Service: Nov 24, 2023 Billing Provider: LUPE GOLDBERG MD Common Visit Codes: [id number] INP/OBS CARE(HIGH) Secondary Visit Codes: [id number] CARE PLAN 30 MINUTES KRISTIN HAM RESIDENT Nov 24, 2023 14:31 LUPE GOLDBERG MD Nov 24, 2023 17:06
--- NOTE | 2023-11-25 07:41 | DVHDSRES ---
Discharge Summary Date of Admission Resident Creating Document: KRISTIN HAM RESIDENT Nov 22, 2023 at 14:06 Date of Discharge: Nov 24, 2023 Admitting Diagnosis hip dislocation Labs/Diagnostic Data: Laboratory Results Test 11/24/23 08:07 11/23/23 05:42 11/22/23 22:25 11/22/23 08:55 White Blood Count 6.3 10^3/uL (4.4-10.8) Red Blood Count 4.23 10^6/uL (4.5-5.90) Hemoglobin 11.9 g/dL (13.5-17.5) Hematocrit 35.9 % (41.0-53.0) Mean Corpuscular Volume 85.0 fL (80.0-100.0) Mean Corpuscular Hemoglobin 28.2 pg (28.0-32.0) Mean Corpuscular Hemoglobin Concent 33.2 g/dL (32.0-36.0) Red Cell Distribution Width 15.5 % (11.8-14.3) Platelet Count 146 10^3/uL (140-450) Mean Platelet Volume 7.4 fL (6.9-10.8) Neutrophils (%) (Auto) 66.6 % (37.0-80.0) Lymphocytes (%) (Auto) 16.9 % (10.0-50.0) Monocytes (%) (Auto) 11.8 % (0.0-12.0) Eosinophils (%) (Auto) 4.4 % (0.0-7.0) Basophils (%) (Auto) 0.3 % (0.0-2.0) Neutrophils # (Auto) 4.2 10 ^3/uL (1.6-8.6) Lymphocytes # (Auto) 1.1 10 ^3/uL (0.4-5.4) Monocytes # (Auto) 0.7 10 ^3/uL (0-1.3) Eosinophils # (Auto) 0.3 10 ^3/uL (0-0.8) Basophils # (Auto) 0 10 ^3/uL (0-0.2) Nucleated Red Blood Cells 0.1 % Sodium Level 138 mmol/L (136-145) Potassium Level 4.2 mmol/L (3.5-5.1) Chloride Level 108 mmol/L (98-107) Carbon Dioxide Level 28 mmol/L (20-31) Anion Gap 2 (5-15) Blood Urea Nitrogen 16 mg/dL (9-23) Creatinine 0.81 mg/dL (0.700-1.30) Glomerular Filtration Rate Calc 97 mL/min (>90) BUN/Creatinine Ratio 19.8 (10.0-20.0) Serum Glucose 99 mg/dL (74-106) Calcium Level 8.5 mg/dL (8.7-10.4) Prothrombin Time 11.4 sec (9.3-11.8) Prothrombin Time INR 1.08 (0.9-1.15) Activated Partial Thromboplast Time 25.6 SEC (24.5-34.5) Total Bilirubin 1.1 mg/dL (0.2-1.0) Aspartate Amino Transferase (AST) 96 U/L (13-40) Alanine Aminotransferase (ALT) 88 U/L (7-40) Alkaline Phosphatase 162 U/L (46-116) Total Protein 6.3 g/dL (5.7-8.2) Albumin 3.8 g/dL (3.2-4.8) Urine Color Light-yellow (Yellow) Urine Clarity Clear (Clear) Urine pH 5.0 (5.0-9.0) Urine Specific [place] 1.018 (1.001-1.035) Urine Protein Negative (Negative) Urine Ketones 1+ (Negative) Urine Blood Trace /uL (Negative) Urine Nitrite Negative (Negative) Urine Bilirubin Negative (Negative) Urine Urobilinogen Normal mg/dL (Negative) Urine Leukocyte Esterase Negative /uL (Negative) Urine RBC 2 /hpf (0 - 3) Urine WBC None seen /hpf (0 - 3) Urine Squamous Epithelial Cells None seen /hpf (<5) Urine Bacteria None seen /hpf (None Seen) Urine Glucose Normal mg/dL (Normal) Magnesium Level 2.0 mg/dL (1.6-2.6) Other Laboratory Tests 11/24/23 08:07 Brief Hx & Hospital Course: A 68-year-old male with past medical history of arthritis depression GERD CAD hyperlipidemia hypertension who came due to an episode of left hip dislocation which was attempt to be reduce in the ER unsuccessfully. patient was assessed by ortho team who consider close reduction of the dislocation. Also patient was seen by Dr. Marcano for a surgical clearance and he approved. On Nov, the close reduction was attempted in the OR but was unsuccessful so Dr Truong, ortho surgeon, consider transfer to high level of care, patient was accepted at [facility] for further treatment General appearance: A&O x4 in mild distress HEENT: Normal ENT inspection, pharynx normal, TMs normal Neck: Full range of motion, nontender, normal inspection Respiratory: Chest nontender, without accessory muscle use, no respiratory distress Cardiovascular: No edema, no JVD, normal peripheral pulses Gastrointestinal: Soft, nontender, no organomegaly. Musculoskeletal: Left hip range of motion grossly limited with pain on slight movement, no calf tenderness, normal capillary refill, no pedal edema, neurovascularly intact. Skin: Dry, normal color, warm Lymphatic: No adenopathy Case discussed with Dr Goldberg Consults/Reason for consult ortho due to hip dislocation Operations or Procedures Report Details Date: 11/23/23 Preop Diagnosis: Left total hip posterior dislocation Postop Diagnosis: Left total hip posterior dislocation Surgeon: Justyn Duncan MD Digital Advertising Analyst: Yokasta Joseph, Physician Digital Advertising Analyst Anesthesiologist: DR Jean Anesthesia: General Implant: None Consent: The patient was informed of the risks and benefits of the procedure. These include but are not limited to complications of anesthesia, postoperative infection, incomplete relief of symptoms, recurrence of symptoms, damage to blood vessels, nerves and tendons, deep venous thrombosis, pulmonary embolism and possible need for repeat surgery in the future. Complications: None Estimated Blood Loss: None Indications for Surgery: The patient is a 68-year-old male who presented to the emergency room with a history of pain in the hip. Clinical and radiological evaluation demonstrated total hip prosthesis dislocation. An reduction attempt was made in the ER but was unsuccessful. Orthopedics was consulted for further management. On further assessment, it was noted that patient had total hip done bilaterally. He also had distal femur fracture on the ipsilateral side that was treated with open reduction internal fixation in the past. The patient had multiple dislocations in the past, more than 10. Nonoperative and operative management options were discussed. Closed reduction was discussed with the patient. It was explicitly mentioned to the patient before the procedure that this seizure would not involve open reduction as that would be a major procedure with was healed revision of one or both components. The patient voiced understanding of the same and mentioned that we will likely see Dr. Basurto for the same if possible, as he treated his other side. Procedural complications such as neurovascular injury, dislocation again, periprosthetic fracture, loss of limb or life were discussed with him. He decided to proceed with the closed reduction Name of Procedure Performed Left hip closed reduction, unsuccessful Procedure Details Procedure Details: The patient was identified in the preoperative holding area and the surgical site was marked. The consent was verified. He was brought into the operating room and placed supine on the operating table. General anesthesia was administered. Intravenous antibiotics were given. The extremity was prepped and draped in the usual sterile manner. A time-out was called to confirm the identity of the patient, the nature of surgery, the site of procedure, the availability of implants and x-rays and allergies to medications. Reduction was attempted 1st with the hip in flexion and traction and internal rotation. This was unsuccessful. The patient was noted to be in a lot of spasm and further muscle relaxation was given. I decided to reduce it on the [place] table. The patient's leg was extended as much as possible and fit into the traction boot. Gradually, traction was applied slowly. The femoral head did line up with the acetabular cup but was not reduced. I once again attempted reduction with the hip in flexion and traction and some adduction and the joint was reduced with a palpable clunk. However when the hip was extended even slightly for x-rays, another clunk was noted and the hip dislocated. This happened multiple times and the hip would not stay in even with flexion slightly less than 90. After multiple attempts to contain the hip, it was concluded that the hip is highly unstable and will require a major revision and possible transfer to the tertiary center. I discussed this case with my hip replacement colleagues and they recommended higher level of care due to the complexity of the case. The patient was extubated and taken to the recovery without any complications. Condition Good Disposition Still a Patient Condition at Discharge: Good Final Diagnosis/Problems List #acute left total hip dislocation #s/p bilateral hip arthoplasty in 2016 #Hypertensive heart disease with chronic systolic disfunction #CAD #transaminitis #GERD #Hyperlipidimia #chronic back pain #depression #arthritis Discharge Disposition: Acute Care Facility Discharge Instruct/Medications Diet: Consistent carbohydrate, Cardiac 2g Na,low cholest Activity: Light activity Follow Up/Referral: transfer to high level of care Discharge Statement: "Patient was advised to return to the ER or call 911 if any headaches, dizziness, shortness of breath, chest pain, abdominal pain, bleeding, fevers, or worsening of medical condition. Patient was counseled about treatment plan, medications, possible side effects, patientverbalized understanding. All questions were answered to the best of my ability. This discharge took greater then 30 minutes in planning, reviewing documentation, counseling the patient, and discussing with other team members." ASSESSMENT ASSESSMENT Assessment Left total hip posterior dislocation Date of Service: Nov 24, 2023 Billing Provider: LUPE GOLDBERG MD Common Visit Codes: 96221-DCG/OBS DISCH DAY >30min KRISTIN HAM RESIDENT Nov 25, 2023 07:41 LUPE GOLDBERG MD Nov 25, 2023 16:10
== END 2023-11-24 23:49 | disposition short-term general hospital (02) | DRG 560 ==
LOC: ER 07:15 → EDBD 07:15 → UNDOADMIN 13:16 → TELE 13:16 → TELE-E-ADS 13:16 → OVERFLOW 14:06 → TELE-E-ADS 18:08 → EAST 11-23 11:24
PROVIDERS: ADMIT Internal Medicine; ATTEND Internal Medicine
PROC: 0YJ Anatomical Regions, Lower Extremities, Inspection (ICD-10-PCS; principal; 2023-11-22)
PROC: 0YJ Anatomical Regions, Lower Extremities, Inspection (ICD-10-PCS; 2023-11-23)
DX: T84.021A Dislocation of internal left hip prosthesis, initial encounter (principal); I50.32 Chronic diastolic (congestive) heart failure; R71.0 Precipitous drop in hematocrit; R74.01 Elevation of levels of liver transaminase levels; E78.5 Hyperlipidemia, unspecified; I11.0 Hypertensive heart disease with heart failure; G89.4 Chronic pain syndrome; M54.9 Dorsalgia, unspecified; F32.A Depression, unspecified; Y79.2 Prosthetic and other implants, materials and accessory orthopedic devices associated with adverse incidents; I25.10 Atherosclerotic heart disease of native coronary artery without angina pectoris; K21.9 Gastro-esophageal reflux disease without esophagitis; Z96.643 Presence of artificial hip joint, bilateral; I34.0 Nonrheumatic mitral (valve) insufficiency; I11.9 Hypertensive heart disease without heart failure; Z98.1 Arthrodesis status; Z82.49 Family history of ischemic heart disease and other diseases of the circulatory system; Z87.891 Personal history of nicotine dependence; Z79.899 Other long term (current) drug therapy
CPT/HCPCS: 36415; 71045; 73502; 76000; 80048; 80053; 81001; 83735; 85025; 85610; 85730; 87081; 93005; 93306; 97110; 97163; 97530; A4565; G0378; J0131; J2250; J2405; J2704

== ENCOUNTER 2024-03-12 17:04 | Emergency (ER) | payer MEDICARE, OTHER ==
[~2024-03-12] VITALS: Ht 172.7 cm; Wt 77.2 kg
[~2024-03-12 17:04] MED LIST changes: -CARV12.544 PO; -CLON0.1T PO; -ENAL1TAB46 PO; +GABA-1250 PO; -HYDR-531 PO; -MELO7.5T7 PO; +OXY5T PO; -OXYB5SYP4 PO; +OXYB5TAB14 PO; +TEMA30CA PO
--- NOTE | 2024-03-12 18:58 | ED.PDOC ---
History of Present Illness HPI Comments 69 y/o M, with a Hx of osteoarthritis, left-hip dislocations s/p bilateral hip replacement and spine surgery, HLD, and HTN, is BIBA for c/o left-hip pain for 1x day, today. Patient is a poor historian and endorses on unprovoked and sudden onset of pain, yesterday. He comments on Hx of left-hip dislocations in the past and wearing a current brace to said hip following previous episode. He denies having any recent injuries along with commenting on any further relevant or pertinent information. Patient denies having any weakness, numbness, tingling, or other associated symptoms or modifiers at this time. Chief Complaint: Lower Extremity Time Seen by MD: 18:05 Primary Care Provider: KRISTINE Reviewed Notes: Nurses Notes, Director Of Math Notes, Medications, Allergies Allergies: Coded Allergies: NO KNOWN ALLERGIES (Unverified , 12/12/18) Home Meds Reported Medications Temazepam (Temazepam) 30 Mg Cap, 15 MG PO HS PRN for FOR INSOMNIA, CAP 11/23/23 Oxybutynin Chloride (Oxybutynin Chloride) 5 Mg Tab, 5 MG PO BID, TAB 11/23/23 Citalopram Hydrobromide (Citalopram Hydrobromide) 40 Mg Tab, 20 MG PO HS for 30 Days, MG 11/23/23 Gabapentin (Gabapentin) 300 Mg Cap, 300 MG PO TID for 30 Days, MG 11/23/23 Oxycodone Hcl (OXYCODONE HCL) 5 Mg Tb, 10 MG PO TIDPRN PRN for BREAKTHROUGH PAIN, TAB 11/23/23 Fentanyl (Fentanyl) 75 Mcg/Hr Dis, 75 MCG TD Q72HR, DIS 12/12/18 Metaxalone (Metaxalone) 800 Mg Tab, 800 MG PO TID, TAB 12/12/18 Citalopram Hydrobromide (Citalopram Hydrobromide) 40 Mg Tab, 40 MG PO DAILY for 30 Days, MG 12/12/18 Gabapentin (Neurontin) 100 Mg Cap, 1 CAP PO TID, #90 CAP 2 Refills 05/16/18 Omeprazole (Omeprazole) 20 Mg Cap, 20 MG PO DAILY, CAP 05/16/18 Atorvastatin Calcium (ATORVASTATIN CALCIUM) 10 Mg Tab, 1 TAB PO HS, #30 TAB 5 Refills 05/16/18 Information Source: Patient, Emergency Med Personnel Mode of Arrival: EMS Severity: Moderate Timing: Days Duration: Since onset Prehospital treatment: 12 Lead EKG, Acid Extractor, Pain Meds (1g Tylenol IV ), Other (18G to left forearm ) Past Medical History PAST MEDICAL HISTORY: Arthritis (osteoarthritis ), Depression, GERD, High Lipids, HTN Past Medical History (Other): left-hip dislocations Surgical History: Appendectomy, Hernia Repair, Tonsillectomy Surgical History (Other): blateral hip replacements, spine Sx Family History Family History: Reviewed,noncontributory to illness, Family hx of heart mallika, Family hx of HTN Social History Smoker: Quit Greater Than 1 Year Alcohol: Occasionally Drugs: Marijuana Lives In: Home Musculoskeletal: reports: others (left hip pain ) All Other Systems: Reviewed and Negative (negative unless otherwise stated above or in HPI) Physical Exam General Appearance: No Apparent Distress, Normal HEENT: Normal ENT Inspection, Pharynx Normal, TMs Normal Neck: Full Range of Motion, Non-Tender, Normal, Normal Inspection Respiratory: Chest Non-Tender, Lungs Clear, No Accessory Muscle Use, No Respiratory Distress, Normal Breath Sounds Cardiovascular: No Edema, No JVD, No Murmur, No Gallop, Normal Peripheral Pulses, Regular Rate/Rhythm Breast Exam: Deferred Gastrointestinal: No Organomegaly, Non Tender, No Pulsatile Mass, Normal Bowel Sounds, Soft Genitalia: Deferred Pelvic: Deferred Rectal: Deferred Extremities: No calf tenderness, Normal capillary refill, Normal inspection, Normal range of motion, Non-tender, No pedal edema Musculoskeletal : Location: Left Extremity Location: Hip Apperance: Normal, Tenderness Neurologic: Alert, fish seiner II-XII nml as Tested, No Motor Deficits, Normal Affect, Normal Mood, No Sensory Deficits Cerebellar Function: Normal Reflexes: Normal Skin: Dry, Normal Color, Warm Lymphatic: No Adenopathy Was a procedure done? Was a procedure done?: Yes Sedation Sedation?: Yes Informed consent obtained: Yes Sedation start time: 03:40 Sedation end time: 03:55 Sedation total time: 15x minutes Reduction Indication: Dislocation Sedation: Consents obtained, Sedation as ordered (propofol 200mg IV ) Intra-articular anesthetic adonay: No Post-reduction x-ray show: Reduction, Good Alignment Informed consent obtained: Yes Risks/benefits/alt described: Yes Differential Dx Considerations may include: dislocation, fracture, contusions, bruising, musculoskeletal pain X-Ray, Labs, Meds, VS Vital Signs Date Time Temp Pulse Resp B/P (MAP) Pulse Ox O2 Delivery O2 Flow Rate FiO2 03/13/24 03:55 88 18 130/81 (97) 97 03/13/24 03:50 79 18 124/57 (79) 97 03/13/24 03:45 80 18 121/59 (79) 97 03/13/24 03:40 80 18 123/57 (79) 97 03/12/24 21:49 76 18 97 Room Air* 0 21 03/12/24 21:49 98.2 84 18 125/70 (88) 97 98.2 03/12/24 17:12 98.0 86 18 127/72 (90) 95 Lab Test 03/12/24 21:30 03/12/24 18:48 Range/Units Urine Color Light-yellow Yellow Urine Clarity Clear Clear Urine pH 6.0 5.0-9.0 Urine Specific [place] 1.021 1.001-1.035 Urine Protein Negative Negative Urine Ketones Negative Negative Urine Blood Negative Negative /uL Urine Nitrite Negative Negative Urine Bilirubin Negative Negative Urine Urobilinogen Normal Negative mg/dL Urine Leukocyte Esterase Negative Negative /uL Urine RBC 1 0 - 3 /hpf Urine Microscopic WBC < 1 0-3 /HPF Urine Squamous Epithelial Cells None seen <5 /hpf Urine Bacteria None seen None Seen /hpf Urine Glucose Normal Normal mg/dL White Blood Count 7.4 4.4-10.8 10^3/uL Red Blood Count 4.48 L 4.5-5.90 10^6/uL Hemoglobin 12.3 L 13.5-17.5 g/dL Hematocrit 37.6 L 41.0-53.0 % Mean Corpuscular Volume 83.8 80.0-100.0 fL Mean Corpuscular Hemoglobin 27.4 L 28.0-32.0 pg Mean Corpuscular Hemoglobin Concent 32.7 32.0-36.0 g/dL Red Cell Distribution Width 16.4 H 11.8-14.3 % Platelet Count 169 140-450 10^3/uL Mean Platelet Volume 6.9 6.9-10.8 fL Neutrophils (%) (Auto) 67.5 37.0-80.0 % Lymphocytes (%) (Auto) 17.1 10.0-50.0 % Monocytes (%) (Auto) 11.8 0.0-12.0 % Eosinophils (%) (Auto) 3.3 0.0-7.0 % Basophils (%) (Auto) 0.3 0.0-2.0 % Neutrophils # (Auto) 5.0 1.6-8.6 10 ^3/uL Lymphocytes # (Auto) 1.3 0.4-5.4 10 ^3/uL Monocytes # (Auto) 0.9 0-1.3 10 ^3/uL Eosinophils # (Auto) 0.2 0-0.8 10 ^3/uL Basophils # (Auto) 0 0-0.2 10 ^3/uL Nucleated Red Blood Cells 0.0 % Prothrombin Time 10.9 9.3-11.8 sec Prothrombin Time INR 1.03 0.9-1.15 Activated Partial Thromboplast Time 27.1 24.5-34.5 SEC Sodium Level 136 136-145 mmol/L Potassium Level 4.3 3.5-5.1 mmol/L Chloride Level 102 98-107 mmol/L Carbon Dioxide Level 30 20-31 mmol/L Anion Gap 4 L 5-15 Blood Urea Nitrogen 19 9-23 mg/dL Creatinine 0.89 0.700-1.30 mg/dL Glomerular Filtration Rate Calc 93 >90 mL/min BUN/Creatinine Ratio 21.3 H 10.0-20.0 Serum Glucose 113 H 74-106 mg/dL Calcium Level 9.4 8.7-10.4 mg/dL Total Bilirubin 0.5 0.2-1.0 mg/dL Aspartate Amino Transferase (AST) 163 H 13-40 U/L Alanine Aminotransferase (ALT) 106 H 7-40 U/L Alkaline Phosphatase 283 H 46-116 U/L Troponin I High Sensitivity 10 </=54 ng/L Total Protein 6.7 5.7-8.2 g/dL Albumin 3.7 3.2-4.8 g/dL Current Medications Medications (Trade) Dose Ordered Sig/Francisco Javier Route Start Time Stop Time Status Last Admin Acetaminophen/ Hydrocodone Bitart ([place] 10/325MG Tab) 1 tab ONCE ONCE PO 03/12/24 18:30 03/12/24 18:37 DC 03/12/24 21:47 Sodium Chloride 1,000 ml @ 1,000 mls/hr Q1H ONCE IV 03/13/24 03:15 03/13/24 04:14 DC 03/13/24 03:42 Propofol (Diprivan) 200 mg ONCE ONCE IV 03/13/24 03:30 03/13/24 03:31 DC 03/13/24 03:43 [place] [address] Ph: [phone] DIAGNOSTIC IMAGING Diagnostic Imaging Report : [id number] Signed PATIENT: TABITHA EARLY ACCT: [id number] UNIT: [id number] : 1955 LOC: ER ROOM / BED: / AGE / SEX: 69 / M ADM STATUS: REG ER SERVICE 23 ORDERING PHYSICIAN: ABDULAZIZ CARREON MD PROCEDURE(s): LHIP1 - L HIP 1V XRAY REASON: dislocated ORDER NUMBER(s): [id number], ACCESSION NUMBER(s): [id number] CLINICAL INDICATION: dislocated TECHNIQUE: XY L HIP 1V XRAY Comparison: L HIP 1V XRAY on DOS: 12/12/18 FINDINGS: IMPRESSION: Single AP radiograph of the left hip demonstrates total hip arthroplasty with superior dislocation / displacement of the femoral component from the acetabular component. ATED BY: JOSE DELVALLE MD DICTATED DATE/TIME: 03/12/242033 SIGNED BY: JOSE DELVALLE MD SIGNED DATE/TIME: 03/12/242033 CC: [place] [address] Ph: [phone] DIAGNOSTIC IMAGING Diagnostic Imaging Report : [id number] Signed PATIENT: TABITHA EARLY ACCT: [id number] UNIT: [id number] : 1955 LOC: ER ROOM / BED: / AGE / SEX: 69 / M ADM STATUS: REG ER SERVICE 23 ORDERING PHYSICIAN: ABDULAZIZ CARREON MD PROCEDURE(s): RHIP1 - R HIP 1V XRAY REASON: dislocation ORDER NUMBER(s): [id number], ACCESSION NUMBER(s): [id number] CLINICAL INDICATION: dislocation TECHNIQUE: XY R HIP 1V XRAY Comparison: None FINDINGS: IMPRESSION: Single AP radiograph of right hip demonstrates total hip arthroplasty in apparent satisfactorily position with no evidence of acute fracture. ATED BY: JOSE DELVALLE MD DICTATED DATE/TIME: 03/12/242030 SIGNED BY: JOSE DELVALLE MD SIGNED DATE/TIME: 03/12/242030 CC: After attempt to reduce the left hip dislocation and after several attempts and several Hospital we were able to transfer the patient to [facility] via Dr. AQUINO Time of 1ST Reevaluation: 18:35 Reevaluation 1ST: Unchanged Patient Education/Counseling: Diagnosis, Treatment Family Education/Counseling: No Family Present Departure 1 Departure Time of Disposition: 05:41 Impression: Primary Impression: Failure of left total hip arthroplasty with dislocation of hip Disposition: 02 SHORT TERM HOSPITAL Condition: Stable Discharged With: Self Critical Care Note Critical Care Time?: No Stability Stability form required: No Heart Score Heart Score: Heart Score Response (Comments) Value History N/A 0 EKG N/A 0 Age N/A 0 Risk Factors N/A 0 Troponin N/A 0 Total 0 I personally scribed for ABDULAZIZ CARREON MD ([email or web address]) on 03/12/24 at 18:58. Electronically submitted by Jayro Tellez ([email or web address]). I personally scribed for ABDULAZIZ CARREON MD ([email or web address]) on 03/13/24 at 05:16. Electronically submitted by Jayro Tellez ([email or web address]). I personally scribed for ABDULAZIZ CARREON MD ([email or web address]) on 03/13/24 at 05:18. Electronically submitted by Jayro Tellez ([email or web address]). ABDULAZIZ CARREON MD Mar 12, 2024 18:58
[2024-03-12 19:03] LABS: Basophils # (auto) 0 10 ^3/uL (0-0.2); Basophils % (auto) 0.3 % (0.0-2.0); Eosinophils # (auto) 0.2 10 ^3/uL (0-0.8); Eosinophils % (auto) 3.3 % (0.0-7.0); Hematocrit 37.6 % (41.0-53.0); Hemoglobin 12.3 g/dL (13.5-17.5); Lymphocytes # (auto) 1.3 10 ^3/uL (0.4-5.4); Lymphocytes % (auto) 17.1 % (10.0-50.0); Mean Corpuscular Hemoglobin 27.4 pg (28.0-32.0); Mean Corpuscular Hgb Conc. 32.7 g/dL (32.0-36.0); Mean Corpuscular Volume 83.8 fL (80.0-100.0); Monocytes # (auto) 0.9 10 ^3/uL (0-1.3); Monocytes % (auto) 11.8 % (0.0-12.0); Neutrophils % (auto) 67.5 % (37.0-80.0); Platelet Count (auto) 169 10^3/uL (140-450); Red Blood Cells 4.48 10^6/uL (4.5-5.90); Red Cell Distribution Width 16.4 % (11.8-14.3); White Blood Cell 7.4 10^3/uL (4.4-10.8)
[2024-03-12 19:21] LABS: INR 1.03 (0.9-1.15); Partial Thromboplastin Time 27.1 SEC (24.5-34.5); Prothrombin Time 10.9 sec (9.3-11.8)
[2024-03-12 19:29] LABS: Albumin 3.7 g/dL (3.2-4.8); Anion Gap 4 (5-15); BUN/Creatinine Ratio 21.3 (10.0-20.0); Blood Urea Nitrogen 19 mg/dL (9-23); Calcium 9.4 mg/dL (8.7-10.4); Carbon Dioxide 30 mmol/L (20-31); Chloride 102 mmol/L (98-107); Potassium 4.3 mmol/L (3.5-5.1); Sodium 136 mmol/L (136-145)
[2024-03-12 19:30] LABS: Bilirubin, Total 0.5 mg/dL (0.2-1.0); Total Protein 6.7 g/dL (5.7-8.2)
[2024-03-12 19:31] LABS: Alanine Aminotransferase 106 U/L (7-40); Alkaline Phosphatase 283 U/L (46-116); Aspartate Aminotransferase 163 U/L (13-40); Glucose 113 mg/dL (74-106)
--- NOTE | 2024-03-12 20:34 | DVH ---
CLINICAL INDICATION: dislocation TECHNIQUE: XY R HIP 1V XRAY Comparison: None FINDINGS: IMPRESSION: Single AP radiograph of right hip demonstrates total hip arthroplasty in apparent satisfactorily po sition with no evidence of acute fracture.
--- NOTE | 2024-03-12 20:37 | DVH ---
CLINICAL INDICATION: dislocated TECHNIQUE: XY L HIP 1V XRAY Comparison: L HIP 1V XRAY on DOS: 12/12/18 FINDINGS: IMPRESSION: Single AP radiograph of the left hip demonstrates total hip arthroplasty with superior dislocation / displacement of the femoral component from the acetabular component.
[2024-03-12] MEDS: HYDROcodone-ACET 10/325MG TAB PO ONE (21:47)
[2024-03-12 21:49] VITALS: PULSE 76; RESP 18; O2SAT 97
[2024-03-12 21:49] LABS: Urine Bacteria None Seen /hpf (None Seen)
[2024-03-12 21:57] LABS: Urine Blood Negative /uL (Negative); Urine Clarity Clear (Clear); Urine Color Light-Yellow (Yellow); Urine Protein, UAD Negative (Negative); Urine Specific Gravity 1.021 (1.001-1.035); Urine Squamous Epithelial Cell None Seen /hpf (<5); Urine Urobilinogen Normal (Negative); Urine WBC < 1 /HPF (0-3)
[2024-03-13] MEDS: SODIUM CHLORIDE 0.9% 1,000 ML IV ONE (03:42)
[2024-03-13] MEDS: PROPOFOL 10 MG/ML 20 ML IV ONE (03:43)
--- NOTE | 2024-03-13 05:40 | DVH ---
XY L HIP 1V XRAY, INDICATION: post reduction TECHNICAL DATA: Frontal and frog lateral views were obtained of the left hip.] COMPARISON: XY R HIP 1V XRAY on DOS: 03/12/24, XY L HIP 1V XRAY on DOS: 03/12/24, L HIP 1V XRAY on DOS: 1 02/11/18 FINDINGS: Persistent dislocation of the humeral head from the acetabulum. Soft tissue swelling. IMPRESSION: 1. Unsuccessful reduction as above.
[2024-03-13] MEDS: GABAPENTIN 300 MG CAP PO SCH (05:53)
[2024-03-13] MEDS: OXYCODONE W/ ACETAMINOPHEN 5/325MG TABLET PO PRN (05:54)
[2024-03-13] MEDS: CARVEDILOL 3.125 MG TAB PO SCH (05:54)
[2024-03-13] MEDS ORDERED: CARV6.2551 PO (06:42)
[2024-03-13 07:45] VITALS: PULSE 80; RESP 18; O2SAT 96
[2024-03-13] MEDS: CYCLOBENZAPRINE HCL 10 MG TAB PO ONE (10:02)
[2024-03-13 13:13] VITALS: BP 113/59; PULSE 76; RESP 17; TEMP 98.8; O2SAT 95
[2024-03-13] MEDS: ONDANSETRON HCL 4 MG/2 ML VIAL IV ONE (13:17)
== END 2024-03-13 13:44 | disposition short-term general hospital (02) ==
LOC: EDBD 17:04 → EDUNIT# 17:04 → ER 17:09
DX: T84.021A Dislocation of internal left hip prosthesis, initial encounter (principal); I10 Essential (primary) hypertension; E78.5 Hyperlipidemia, unspecified; K21.9 Gastro-esophageal reflux disease without esophagitis; Z87.891 Personal history of nicotine dependence; Z90.49 Acquired absence of other specified parts of digestive tract; Z90.89 Acquired absence of other organs; Z96.641 Presence of right artificial hip joint; Z98.890 Other specified postprocedural states; Z79.899 Other long term (current) drug therapy; Y79.2 Prosthetic and other implants, materials and accessory orthopedic devices associated with adverse incidents
CPT/HCPCS: 27250; 36415; 73501; 80053; 81001; 84484; 85025; 85610; 85730; 96361; 96374; 99152; 99285; J2405; J2704; J7030